=== PATIENT | female | born 1935 | race Caucasian/White ===

== ENCOUNTER 2016-03-17 13:07 | Outpatient (CLI) | payer MEDICARE, OTHER | END 2016-03-17 13:08 | disposition home or self-care (01) | DX: R41.3 Other amnesia (principal); E11.43 Type 2 diabetes mellitus with diabetic autonomic (poly)neuropathy; I10 Essential (primary) hypertension; Z79.01 Long term (current) use of anticoagulants ==

== ENCOUNTER 2017-03-09 07:50 | Outpatient (CLI) | payer MEDICARE, OTHER ==
[2017-03-09 12:34] LABS: BASOPHILS # (AUTO) 0.1 10^3/uL (0.0-0.1); BASOPHILS % (AUTO) 0.7 %; EOSINOPHILS # (AUTO) 0.1 10^3/uL (0.0-0.7); EOSINOPHILS % (AUTO) 0.8 %; HGB - HEMOGLOBIN 14.3 g/dL (12.0-16.0); LYMPHOCYTES # (AUTO) 1.4 10^3/uL (1.5-3.5); LYMPHOCYTES % (AUTO) 17.2 %; MEAN CORPUSCULAR HEMOGLOBIN 30.5 pg (27.0-31.0); MEAN CORPUSCULAR VOLUME 92.4 fL (81.0-99.0); MEAN PLATELET VOLUME 9.6 fL (7.9-10.8); MONOCYTES # (AUTO) 0.7 10^3/uL (0.0-1.0); MONOCYTES % (AUTO) 8.3 %; NEUTROPHILS # (AUTO) 6.1 10^3/uL (1.5-6.6); PLT - PLATELET COUNT 185 10^3/uL (130-450); RED BLOOD COUNT 4.67 10^6/uL (4.20-5.40); RED CELL DISTRIBUTION WIDTH 14.4 % (12.0-15.0); WHITE BLOOD COUNT 8.4 x10^3/uL (4.8-10.8)
[2017-03-09 12:48] LABS: ALBUMIN 3.8 g/dL (3.2-5.5); ALBUMIN/GLOBULIN RATIO 1.2 (1.0-2.2); ALKALINE PHOSPHATASE 53 IU/L (42-121); ALT ALANINE AMINOTRANSFERASE 17 IU/L (10-60); AST ASPARTATE AMINOTRANSFERASE 26 IU/L (10-42); BILIRUBIN,TOTAL 0.6 mg/dL (0.2-1.0); BUN - BLOOD UREA NITROGEN 19 mg/dL (6-20); CALCIUM 9.1 mg/dL (8.5-10.3); CARBON DIOXIDE - CO2 25 mmol/L (21-32); CHLORIDE 105 mmol/L (101-111); CHOL/HDL RATIO 2.8 (<4.4); CHOLESTEROL 167 mg/dL; GFR - MDRD 53 (>89); GLUCOSE 152 mg/dL (70-100); HDL CHOLESTEROL 59 mg/dL; LDL CHOLESTEROL,CALCULATED 94 mg/dL; LDL/HDL RATIO 1.6 (<4.4); SODIUM 140 mmol/L (135-145); TOTAL PROTEIN 6.9 g/dL (6.7-8.2); VLDL CHOLESTEROL 14 mg/dL
[2017-03-09 12:50] LABS: HB2 TOTAL 15.4 g/dL; HEMOGLOBIN A1C 0.71 g/dL; HEMOGLOBIN A1C % 6.4 % (4.6-6.2)
== END 2017-03-09 07:51 | disposition home or self-care (01) ==
LOC: LAB.F 07:50
PROVIDERS: ATTEND Physician Assistant Medical
DX: I10 Essential (primary) hypertension (principal); E11.43 Type 2 diabetes mellitus with diabetic autonomic (poly)neuropathy; E78.5 Hyperlipidemia, unspecified
CPT/HCPCS: 36415; 80053; 80061; 83036; 85025

== ENCOUNTER 2017-10-04 12:12 | Outpatient (CLI) | payer MEDICARE, OTHER ==
[2017-10-04 18:00] LABS: CREATININE 1.1 mg/dL (0.4-1.0)
[2017-10-04 18:02] LABS: HB2 TOTAL 16.3 g/dL; HEMOGLOBIN A1C 0.77 g/dL; HEMOGLOBIN A1C % 6.5 % (4.6-6.2)
== END 2017-10-04 12:13 | disposition home or self-care (01) ==
LOC: LAB.F 12:12
PROVIDERS: ATTEND Internal Medicine
DX: E11.43 Type 2 diabetes mellitus with diabetic autonomic (poly)neuropathy (principal)
CPT/HCPCS: 36415; 80048; 82043; 83036

== ENCOUNTER 2018-07-20 19:29 | Emergency (ER) | payer MEDICARE, OTHER ==
--- NOTE | 2018-07-20 20:29 | ED Physician Documentation ---
PD HPI HEENT - Stated complaint Stated Complaint: SUDDEN HEARING LOSS - Chief complaint Chief Complaint: Heent - History obtained from History obtained from: Patient, Family - History of Present Illness Timing - onset: Today Timing - duration: Days (1) Timing - details: Gradual onset Pain level max: 0 Pain level now: 0 Location: Right ear, Left ear Improves: Nothing Worsens: Other (nothing) - Additional information Additional information: States cannot hear out of either ear. History of wax buildup. No fevers. No dizziness. No headache. Review of Systems Constitutional: denies: Fever Nose: denies: Rhinorrhea / runny nose, Congestion Respiratory: denies: Cough GI: denies: Vomiting PD PAST MEDICAL HISTORY - Past Medical History Past Medical History: Yes Cardiovascular: Hypertension, High cholesterol Respiratory: None Endocrine/Autoimmune: Type 2 diabetes GI: None : None Psych: None Musculoskeletal: None Derm: None - Past Surgical History Past Surgical History: Yes - Present Medications Home Medications: Ambulatory Orders Medication Instructions Recorded Confirmed Atenolol 100 gm MC DAILY 07/14/13 05/20/14 Lisinopril/Hydrochlorothiazide 0.5 each PO DAILY 07/14/13 05/20/14 [Lisinopril-Hctz 20-25 mg Tab] Metformin HCl [Glucophage] 500 mg PO QPM 07/14/13 05/20/14 Pravastatin Sodium [Pravachol] 80 mg PO QPM 07/14/13 05/20/14 Dabigatran Etexilate Mesylate 150 mg PO BID 07/20/18 07/20/18 [Pradaxa] Ubidecarenone [Coenzyme Q-10] 30 mg PO DAILY 07/20/18 07/20/18 - Allergies Allergies/Adverse Reactions: Allergies Allergy/AdvReac Type Severity Reaction Status Date / Time Sulfa (Sulfonamide Allergy Intermediate Rash Verified 07/20/18 19:36 Antibiotics) - Social History Does the pt smoke?: Yes Smoking Status: Current every day smoker Does the pt drink ETOH?: Yes Does the pt have substance abuse?: No PD ED PE NORMAL - Vitals Vital signs reviewed: Yes - General General: Alert and oriented X 3, No acute distress - HEENT HEENT: Moist mucous membranes, Other (Impacted cerumen bilateral ears) - Neck Neck: Supple, no meningeal sign - Derm Derm: Warm and dry - Neuro Neuro: Alert and oriented X 3 Results - Vitals Vitals: Vital Signs - 24 hr 07/20/18 07/20/18 19:32 20:39 Temperature 36.6 C 36.3 C L Heart Rate 66 66 Respiratory 14 18 Rate Blood Pressure 130/83 H 144/86 H O2 Saturation 96 96 Oxygen O2 Source Room air PD MEDICAL DECISION MAKING - ED course Complexity details: considered differential, d/w patient ED course: Patient with cerumen impaction bilaterally. This was irrigated removed by the nurse. Reexamination reveals no evidence of infection or perforation. Hearing improved. Patient counseled regarding signs and symptoms for which I believe and urgent re-evaluation would be necessary. Patient with good understanding of and agreement to plan and is comfortable going home at this time This document was made in part using voice recognition software. While efforts are made to proofread this document, sound alike and grammatical errors may oc cur. Departure - Departure Disposition: 01 Home, Self Care Clinical Impression: Impacted cerumen of both ears Condition: Good Instructions: ED Earwax Removal Follow-Up: oJe Selby MD [Primary Care Provider] - As Needed Comments: Return if you worsen. Follow-up with your doctor for further care. Discharge Date/Time: 07/20/18 20:45
[2018-07-20 20:40] VITALS: BP 144/86
== END 2018-07-20 20:45 | disposition home or self-care (01) ==
LOC: ED 19:29
DX: H61.23 Impacted cerumen, bilateral (principal); I10 Essential (primary) hypertension; E11.9 Type 2 diabetes mellitus without complications; Z79.84 Long term (current) use of oral hypoglycemic drugs; F17.200 Nicotine dependence, unspecified, uncomplicated
CPT/HCPCS: 69209; 99282; 99283

== ENCOUNTER 2018-10-28 09:54 | Outpatient (CLI) | payer MEDICARE, OTHER ==
[2018-10-28 18:01] LABS: HB2 TOTAL 15.9 g/dL; HEMOGLOBIN A1C 0.66 g/dL; HEMOGLOBIN A1C % 5.9 % (4.6-6.2)
[2018-10-28 18:03] LABS: ALBUMIN 3.9 g/dL (3.2-5.5); ALBUMIN/GLOBULIN RATIO 1.1 (1.0-2.2); ALKALINE PHOSPHATASE 55 IU/L (42-121); ALT ALANINE AMINOTRANSFERASE 13 IU/L (10-60); AST ASPARTATE AMINOTRANSFERASE 20 IU/L (10-42); BILIRUBIN,TOTAL 0.5 mg/dL (0.2-1.0); BUN - BLOOD UREA NITROGEN 26 mg/dL (6-20); CALCIUM 9.3 mg/dL (8.5-10.3); CARBON DIOXIDE - CO2 26 mmol/L (21-32); CHLORIDE 108 mmol/L (101-111); CHOL/HDL RATIO 3.4 (<4.4); CHOLESTEROL 177 mg/dL; CREATININE 1.1 mg/dL (0.4-1.0); GFR - MDRD 47 (>89); GLUCOSE 135 mg/dL (70-100); HDL CHOLESTEROL 52 mg/dL; LDL CHOLESTEROL,CALCULATED 114 mg/dL; LDL/HDL RATIO 2.2 (<4.4); SODIUM 142 mmol/L (135-145); TOTAL PROTEIN 7.5 g/dL (6.7-8.2); VLDL CHOLESTEROL 11 mg/dL
[2018-10-28 18:04] LABS: CREATININE,URINE 230.8 mg/dL; MICROALBUM/CREATININE RATIO,UR 10.4 ug/mg (<30.0); MICROALBUMIN,URINE 2.4 mg/dL (0-300.0)
== END 2018-10-28 09:55 | disposition home or self-care (01) ==
LOC: LAB.S 09:54
PROVIDERS: ATTEND Internal Medicine
DX: E11.9 Type 2 diabetes mellitus without complications (principal)
CPT/HCPCS: 36415; 80053; 80061; 82043; 82570; 83036; 83721

== ENCOUNTER 2019-08-07 08:39 | Outpatient (CLI) | payer MEDICARE, OTHER ==
[2019-08-07 15:09] LABS: BASOPHILS # (AUTO) 0.1 10^3/uL (0.0-0.1); BASOPHILS % (AUTO) 0.7 %; EOSINOPHILS # (AUTO) 0.3 10^3/uL (0.0-0.7); EOSINOPHILS % (AUTO) 3.1 %; HGB - HEMOGLOBIN 13.1 g/dL (12.0-16.0); LYMPHOCYTES # (AUTO) 1.4 10^3/uL (1.5-3.5); LYMPHOCYTES % (AUTO) 15.9 %; MEAN CORPUSCULAR HGB CONC 31.4 g/dL (32.0-36.0); MEAN CORPUSCULAR VOLUME 98.6 fL (81.0-99.0); MEAN PLATELET VOLUME 11.5 fL (7.9-10.8); MONOCYTES # (AUTO) 0.7 10^3/uL (0.0-1.0); MONOCYTES % (AUTO) 8.2 %; NEUTROPHILS # (AUTO) 6.3 10^3/uL (1.5-6.6); NEUTROPHILS % (AUTO) 71.8 %; PLT - PLATELET COUNT 204 10^3/uL (130-450); RED BLOOD COUNT 4.23 10^6/uL (4.20-5.40); RED CELL DISTRIBUTION WIDTH 13.6 % (12.0-15.0); WHITE BLOOD COUNT 8.7 x10^3/uL (4.8-10.8)
[2019-08-07 15:54] LABS: ALBUMIN 3.7 g/dL (3.2-5.5); ALBUMIN/GLOBULIN RATIO 1.1 (1.0-2.2); ALKALINE PHOSPHATASE 53 IU/L (42-121); ALT ALANINE AMINOTRANSFERASE 14 IU/L (10-60); AST ASPARTATE AMINOTRANSFERASE 16 IU/L (10-42); BILIRUBIN,TOTAL 0.8 mg/dL (0.2-1.0); BUN - BLOOD UREA NITROGEN 25 mg/dL (6-20); CALCIUM 9.3 mg/dL (8.5-10.3); CARBON DIOXIDE - CO2 28 mmol/L (21-32); CHLORIDE 104 mmol/L (101-111); CHOL/HDL RATIO 2.5 (<4.4); CHOLESTEROL 151 mg/dL; CREATININE 1.1 mg/dL (0.4-1.0); GLUCOSE 133 mg/dL (70-100); HDL CHOLESTEROL 60 mg/dL; LDL CHOLESTEROL,CALCULATED 79 mg/dL; LDL/HDL RATIO 1.3 (<4.4); SODIUM 140 mmol/L (135-145); VLDL CHOLESTEROL 12 mg/dL
[2019-08-07 15:55] LABS: HB2 TOTAL 13.7 g/dL; HEMOGLOBIN A1C 0.59 g/dL; HEMOGLOBIN A1C % 6.1 % (4.6-6.2)
== END 2019-08-07 08:40 | disposition home or self-care (01) ==
LOC: LAB.S 08:39
PROVIDERS: ATTEND Registered Nurse
DX: E11.9 Type 2 diabetes mellitus without complications (principal); I10 Essential (primary) hypertension; E78.5 Hyperlipidemia, unspecified; Z79.01 Long term (current) use of anticoagulants
CPT/HCPCS: 36415; 80053; 80061; 83036; 83721; 84443; 85025

== ENCOUNTER 2019-08-19 07:00 | Outpatient (CLI) | payer MEDICARE, OTHER | END 2019-08-19 23:59 | disposition home or self-care (01) | LOC: LAB.R 07:00 | PROVIDERS: ATTEND Registered Nurse | DX: R19.7 Diarrhea, unspecified (principal) | CPT/HCPCS: 87045; 87046 ==

== ENCOUNTER 2020-02-09 07:00 | Outpatient (CLI) | payer MEDICARE, OTHER | END 2020-02-09 23:59 | disposition home or self-care (01) | LOC: LAB 07:00 | PROVIDERS: ATTEND Physician Assistant | DX: N39.0 Urinary tract infection, site not specified (principal) | CPT/HCPCS: 87086; 87181 ==

== ENCOUNTER 2020-05-19 10:15 | Outpatient (CLI) | payer MEDICARE, OTHER ==
--- NOTE | 2020-05-19 17:21 | CONSULTATION NOTE ---
Palliative Care Consultation - Referral Referring Provider: MICHEAL Kennedy Time of Visit: [id number] Referral setting: Assisted living Referral Reason: Debility/Weight loss/Cognitive impairment - Information Sources Records reviewed: Previous records reviewed History/Review of Systems obtained from: Patient, Family (daughter/DPDAVIE, Ivana) Exam limitations: Clinical condition (Memory impairment) - History of Present Illness Brief History of Present Illness: This is an 85-year-old female who was seen and evaluated today with in her apartment at [facility] living due to underlying cognitive impairments, physical deconditioning, and desire for advanced care planning with her daughter/DPGrecia BRODERICK present. The patient's daughter reports that the patient was independent and slowly began to decline it within her copacetic that resulted in a transition to [facility] assisted living approximately 4 years ago. The patient has never been a social individual but prior to the coronavirus pandemic she would be social with her family and have weakens away from the facility to spend time with her family. Her sons and daughter have visited during the coronavirus pandemic far out door visits so they maintains contact. However, the patient has taken a sharp functional decline moving from using her walker however resistantly, to now requiring a wheelchair and history of frequent falls. This change began in the last 3 to 4 months that the daughter perceives. The patient herself does not come down for meals and prefers to stay in her room watching TV. The patient herself denies any depressive symptoms but her daughter perceives some apathy as well as previously expressing some insomnia and anxious thoughts at night which she will letter which gave. The patient has never been treated for depression in the past. The patient's daughter recognizes that approximately 10 years ago she had to take over the patient's finances. More recently however, the patient's daughter notes that the patient is having difficulty tracking conversations. She is becoming more forgetful. Her grandchildren are calling her regularly and her family also continues to visit routinely. She has had weight loss. She has weighed 180 pounds most of her life and always has enjoyed food. She is last reported to be weight at 170 pounds. [facility] where there has been a change in the shaft. The patient's daughter is bringing fresh fruit and salads on Saturdays and there is a potential for some improvement in the patient's overall appetite. Again, the patient does not perceive any complaints has she does not recall what she has previously stated to her daughter. When previously at her last office visit with her PCP with her daughter noting her not elaborating in her answers for several weeks after that office visit the patient was trying to expand on her verbal responses to her family. The patient's daughter reports some redness under the patient's breasts and under her abdomen where she is presently receiving nystatin under her abdomen and is questioning about further interventions. The patient is seen sitting in her recliner chair watching TV and at appropriate level. She is well groomed and in no evidence of acute distress. 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 LOADER AND UNLOADER: reports: Breast cancer : reports: Other (IBS) Psych: reports: None Musculoskeletal: reports: Osteoporosis Derm: reports: None MRSA Hx?: No - Past Surgical History /EXTRACTOR LOADER AND UNLOADER: reports: Other (Radiation for left breast cancer age 68 and lumpectomy) HEENT: reports: Cataracts - Substance History Use: Uses substance without health or social issues: NONE (Has been smoking daily since she was a college student up until the last several months when she was no longer able to get outside to smoke due to her impaired mobility.) Social History - Living Situation Living arrangement: Assisted living Support System: 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 She has a degree in education that began at [employer] and was completed at [employer]. She has 3 children, 1 daughter and 2 sons. Her daughterGrecia is her DPOA with contact number [phone].The patient's first early due to testicular cancer. The patient remarried twice after her after she was and was both times. She has fond memories growing up going to the family [place] near [place] where she would play in the [place]. She has been residing at [facility] living for the past 4 years. Family History - Family History Family History: Mother: , Alzheimer's Disease, Father: Medications/Allergies - Medications Home Medications: Ambulatory Orders Medication Instructions Recorded Confirmed Atenolol 100 mg PO DAILY 05/12/14 03/17/21 Lisinopril/Hydrochlorothiazide 0.5 each PO DAILY 07/14/13 05/19/20 [Lisinopril-Hctz 20-25 mg Tab] Metformin HCl [Glucophage] 500 mg PO QPM 07/14/13 05/19/20 Pravastatin Sodium [Pravachol] 80 mg PO QPM 07/14/13 05/19/20 Dabigatran Etexilate Mesylate 150 mg PO BID 07/20/18 05/19/20 [Pradaxa] Ubidecarenone [Coenzyme Q-10] 30 mg PO DAILY 07/20/18 05/19/20 Furosemide [Lasix] 20 mg PO DAILY 05/19/20 05/19/20 Nystatin Cream [Mycostatin Cream] 1 applic TP BID MDD affected areas 05/19/20 05/19/20 until resolved Psyllium Husk [Metamucil] 1 PO DAILY MDD 1 scoop daily 05/19/20 Refresh Liquigel 1% 1 drops EACHEYE QID 05/19/20 - Allergies Allergies/Adverse Reactions: Allergies Allergy/AdvReac Type Severity Reaction Status Date / Time Sulfa (Sulfonamide Allergy Intermediate Rash Verified 05/19/20 17:36 Antibiotics) Review of Systems - Constitutional Constitutional: reports: Fatigue (napping more during the day and feels tired when waking up in the AM), Weight loss (see HPI). denies: Fever - Eyes Eyes: denies: Irritation - Ears, Nose & Throat Ears, Nose & Throat: denies: Hearing loss, Hearing aids, Dentures - Cardiovascular Cardiovascular: reports: Edema, Decr. exercise tolerance. denies: Chest pain, Lightheadedness - Respiratory Respiratory: reports: Other (Her children have noted coughing episodes intermittently during meals out and therefore family would cut up her food, but the patient denies this.). denies: Wheezing - Gastrointestinal Gastrointestinal: reports: Diarrhea (long standing history of diarrhea off and on through her adult life (IBS component)), Other (Recent decreased appetite with food not appealing). denies: Abdominal pain, Constipation, Vomiting - Genitourinary Genitourinary: denies: Dysuria - Musculoskeletal Musculoskeletal: reports: Assistive devices, Transfer issues. denies: Joint pain - Integumentary Integumentary: reports: Rash (under breasts and abdomen) - Neurological Neurological: reports: General weakness, Memory problems. denies: Headache, Dizziness - Psychiatric Psychiatric: reports: Depression (Perceived by family but not by patient, she denies depressive symptoms) - Endocrine Endocrine: reports: Diabetes type 2 (controlled with metformin. Blood gluocse levels 129-183 fasting.) - Hematologic/Lymphatic Hematologic/Lymph: denies: Recurrent infections - All Other Systems All Other Systems: reports: Reviewed and negative (ROS supplemented by patient's daughter as patient is a poor historian due to cognitive impairment.) Physical Exam - Vital Signs Pulse Rate: 66 O2 Saturation: 98 (on RA) Blood Pressure: 109/70 (left arm) - Physical Exam General Appearance: positive: No acute distress, Alert, Other (overweight) Eyes Bilateral: positive: Normal inspection, PERRL ENT: positive: No signs of dehydration, Other (No dentures present) Neck: positive: No JVD, Trachea midline Cardiovascular: positive: No murmur, Irregularly irregular. negative: Decreased pulse(s) Respiratory: positive: No respiratory distress, Breath sounds nml. negative: Rales Abdomen: positive: Non-tender, Soft, Nml bowel sounds, Obese Skin: positive: Rash (under b/l breasts and right pannus of abdomen consistent with candidiasis), Other Extremities: positive: Pedal edema (trace BLE edema), Other (+DJD changes to b/l hands). negative: Joint swelling Neurologic/Psychiatric: positive: Disoriented to time (believed the year was 1999 and unable to state the name of the president), Weakness (BUE strength 4+/5 ; BLE 4-/5 strength), Flat affect, Other (Memory recall 1/3). negative: Disoriented to person, Disoriented to place Palliative Care - POLST Patient has POLST: Yes POLST Status: DNR, Comfort Measures Pain: No pain Tiredness/Fatigue: Mild (1-3) Drowsiness/Sedation: Mild (1-3) Nausea: None Anorexia: Moderate (4-6) Dyspnea: None Depression: Moderate (4-6) (lonely) Anxiety: None Sleep: Variable sleep pattern Constipation: No Performance Status: In the last 3 to 4 months the patient has had a drastic functional change moving from the use of a walker with ambulation to no longer being ambulate ambulatory using a only a wheelchair. She is a pivot stand and transfer to her wheelchair and onto her recliner. She has had a decreased appetite and subtle weight loss. She requires assistance with pericare and bathing. PPS 50% - Palliative Care Discussion: The patient's daughter/DPOAGrecia recognizes the functional and cognitive decline that the patient has been taking over the last several months. She has some questions and concerns regarding some potential underlying dementia which is not out of the realm of possibility given the patient's history of dementia Alzheimer's dementia with her mother and the onset of her cognitive changes approximately 10 years prior. This will need to be further teased out and assessed. The patient reportedly has been very clear in her living will and directives with a focus on comfort measures. Discussions were begun on several years ago and the patient's daughter/DPGrecia BRODERICK plans to honor her mother's wishes with the support of her brothers. The patient wishes to focus on comfort measures and to remain at [facility] living through end-of-life. The patient's mother was at [facility] for the last several years of her life as her Alzheimer's dementia progressed and the patient herself has been very clear that this is not something that is an option for her due to prior experiences. Due to the patient's underlying cognitive impairment it is difficult to assess if she has depression but does appear to have some underlying apathy. The patient finds pleasure in watching her television programs. Some underlying depression may also be contributing to further cognitive decline. The patient has a strong mormon merry and has been episcopaliaen. She was very strongly involved with [facility] until the coronavirus pandemic. She is open to having the palliative care farmworker grain for additional spiritual and social support. Impression and Recommendations - Palliative Care Impression: This is a karthik 85-year-old female with underlying cutaneous candidiasis under her bilateral breasts and right abdominal pannus, cognitive impairment, physical deconditioning due to to underlying osteoarthritis. From changing from nystatin powder to nystatin cream to be of applied to affected areas of candidiasis until resolved. She would also benefit from home health physical therapy for lower extremity strengthening and she is open to this service. Palliative care will continue to build rapport, tease out goals of care, provide continued advance care planning and care coordination. Recommendations/Counseling Done: 1. Cutaneous candidiasis noted to bilateral breasts and under her right abdominal pannus. Discontinue nystatin powder. Initiate nystatin cream apply a small amount to affected areas twice daily until resolved. Reviewed with patient and daughter not unexpected given the patient's body habitus and review preventative techniques. Patient would benefit from a home health aide for skin care And personal care. 2.Physical deconditioning due to osteoarthritis noted on physical exam. Patient is no longer ambulatory and utilizes a wheelchair with demonstrated lower extremity weakness. She would benefit from 3. Cognitive impairment. Suspect that the patient has dementia given her poor recall and short-term memory issues. She attempts to cover her cognitive impairment with short responses to questions. Will do slums testing at next visit as the patient allows for further testing and assessment. 4.Apathy and lack of appetite. Patient has had a reported weight loss. Patient does not perceive that she has depressive symptoms but this has been apparent to the patient's family. Request that the patient have her weight obtained every other week and notify this ENTERPRISE ARCHITECT if greater than or less than 3 pound difference. We will do more formal assessment with geriatric depression screen at next evaluation. Given the patient's lack of appetite, underlying reports of staying awake due to thoughts the patient may be a benefit from the medication such as mirtazapine in the evenings. We will continue to monitor and reassess. 5. History of falls. Falls unavoidable due to patient's underlying cognitive impairment. Requesting home health physical therapy for additional strengthening for prevention of falls. May need to consider weighing risk versus benefits of continuation of Pradaxa in the future for prevention of an adverse event due to a fall being on anticoagulation therapy. 6. Hyperlipidemia. Patient presently was on pravastatin 80 mg daily with coenzyme Q10. The patient presently does not perceive a pill burden. She does not have a history of CVA or NV. As the family's goals are on comfort and quality of life may reassess discontinuation of statin therapy in the future as this is not adding to the patient's comfort. We will continue to monitor and readdress. Was introduced to the patient's daughter/DPOA Grecia today. 7.Advance care planning. Patient has POLST in place as DN AR with comfort measures, antibiotics for prolongation of life, and no artificial nutrition by tube. The patient has been very clear to her family that she wishes to focus on comfort and quality of life as well as not having placement in a nursing facility due to her prior experiences with her mother declining in dying and 1 due to her Alzheimer's dementia. The patient's family wishes to honor and respect her wishes. Supportive listening provided to the patient's daughter. We will continue to tease out goals of care moving forward. [facility] PT and HOME HEALTH AIDE Patient is wheelchair bound in her assisted-living facility and is a taxing and considerable effort to leave the facility. She would requires home physical therapy for evaluation and treatment for strengthening of lower extremities for transfer training with the goal to improve her ability to bear weight and pivot, take small steps with ambulation, and thus be able to perform transfers from bed to wheelchair. Home health aide for bathing for personal care and skin care. Provided patient's daughter with contact information for Carole Sloan CNA to provide in-house diabetic foot care and nail trimming. Total time spent 90 minutes with greater than 50% of this spent in counseling and coordination of care with patient and daughter/DPOA; review of pathophysiology of various dementias and projected course of decline with daughter; examination of patient; review of pain and symptom management and anticipatory guidance. Disclaimer: The chart note was formulated using voice recognition technology and unfortunately sound alike errors may occur.
== END 2020-05-19 10:16 | disposition home or self-care (01) ==
LOC: PC 10:15
PROVIDERS: ATTEND Nurse Practitioner Family
DX: Z51.5 Encounter for palliative care (principal); B37.2 Candidiasis of skin and nail; M15.9 Polyosteoarthritis, unspecified; R41.89 Other symptoms and signs involving cognitive functions and awareness; R45.3 Demoralization and apathy; R63.0 Anorexia; E78.5 Hyperlipidemia, unspecified; Z91.81 History of falling; Z87.891 Personal history of nicotine dependence; Z79.84 Long term (current) use of oral hypoglycemic drugs; Z66 Do not resuscitate

== ENCOUNTER 2020-05-28 07:00 | Outpatient (CLI) | payer MEDICARE, OTHER ==
[2020-05-28 14:57] LABS: BASOPHILS # (AUTO) 0.1 10^3/uL (0.0-0.1); BASOPHILS % (AUTO) 0.5 %; EOSINOPHILS # (AUTO) 0.2 10^3/uL (0.0-0.7); EOSINOPHILS % (AUTO) 1.1 %; HCT - HEMATOCRIT 44.2 % (37.0-47.0); HGB - HEMOGLOBIN 13.3 g/dL (12.0-16.0); LYMPHOCYTES # (AUTO) 1.6 10^3/uL (1.5-3.5); LYMPHOCYTES % (AUTO) 11.7 %; MEAN CORPUSCULAR HEMOGLOBIN 30.7 pg (27.0-31.0); MEAN CORPUSCULAR HGB CONC 30.1 g/dL (32.0-36.0); MEAN CORPUSCULAR VOLUME 102.1 fL (81.0-99.0); MEAN PLATELET VOLUME 11.8 fL (7.9-10.8); MONOCYTES # (AUTO) 1.3 10^3/uL (0.0-1.0); MONOCYTES % (AUTO) 9.5 %; NEUTROPHILS # (AUTO) 10.3 10^3/uL (1.5-6.6); NEUTROPHILS % (AUTO) 76.9 %; PLT - PLATELET COUNT 256 10^3/uL (130-450); RED BLOOD COUNT 4.33 10^6/uL (4.20-5.40); RED CELL DISTRIBUTION WIDTH 12.7 % (12.0-15.0); WHITE BLOOD COUNT 13.3 x10^3/uL (4.8-10.8)
[2020-05-28 15:51] LABS: ALBUMIN 4.1 g/dL (3.2-5.5); ALKALINE PHOSPHATASE 54 IU/L (42-121); ALT ALANINE AMINOTRANSFERASE < 10 IU/L (10-60); AST ASPARTATE AMINOTRANSFERASE 18 IU/L (10-42); BILIRUBIN,TOTAL 0.6 mg/dL (0.2-1.0); BUN - BLOOD UREA NITROGEN 27 mg/dL (6-20); CALCIUM 9.8 mg/dL (8.5-10.3); CARBON DIOXIDE - CO2 27 mmol/L (21-32); CHLORIDE 105 mmol/L (101-111); CREATININE 1.2 mg/dL (0.4-1.0); GFR - MDRD 42 (>89); GLUCOSE 138 mg/dL (70-100); POTASSIUM 4.2 mmol/L (3.5-5.0); SODIUM 141 mmol/L (135-145); TOTAL PROTEIN 8.3 g/dL (6.7-8.2)
[2020-05-28 16:23] LABS: THYROID STIMULATING HORMONE 1.65 uIU/mL (0.34-5.60)
== END 2020-05-28 23:59 | disposition home or self-care (01) ==
LOC: LAB.S 07:00
PROVIDERS: ATTEND Physician Assistant Medical
DX: R53.83 Other fatigue (principal); R53.1 Weakness; R41.89 Other symptoms and signs involving cognitive functions and awareness
CPT/HCPCS: 36415; 80053; 84443; 85025

== ENCOUNTER 2020-05-28 13:02 | Outpatient (CLI) | payer MEDICARE, OTHER ==
--- NOTE | 2020-05-28 14:03 | XRAY Report ---
PROCEDURE: Chest 2 View X-Ray INDICATIONS: DECREASED LUNG SOUNDS TECHNIQUE: 2 view(s) of the chest. COMPARISON: None. FINDINGS: Surgical changes and devices: Surgical clips are noted in left breast/left lateral chest wall. Lungs and pleura: No pleural effusions or pneumothorax. Lungs are clear. Mediastinum: Mildly tortuous thoracic aorta is seen. Heart size is enlarged. Bones and chest wall: No suspicious bony abnormalities. Soft tissues appear unremarkable. IMPRESSION: No acute cardiopulmonary pathology. Reviewed by: Dario Cha MD on 05/28/2020 2:02 PM PDT Approved by: Dario Cha MD on 05/28/2020 2:02 PM PDT Station ID: [id number]
== END 2020-05-28 23:59 | disposition home or self-care (01) ==
LOC: DI.S 13:02
PROVIDERS: ATTEND Physician Assistant Medical
DX: R06.89 Other abnormalities of breathing (principal); R53.83 Other fatigue; R53.1 Weakness; R41.89 Other symptoms and signs involving cognitive functions and awareness
CPT/HCPCS: 36415; 80053; 84443; 85025

== ENCOUNTER 2020-06-07 11:45 | Outpatient (CLI) | payer MEDICARE, OTHER ==
--- NOTE | 2020-06-07 16:43 | CONSULTATION NOTE ---
Palliative Care Follow Up - Referral Referring Provider: MICHEAL Kennedy Time of Visit: 7435-4322 Referral setting: Assisted living Referral Reason: Cognitive impairment/Debility/Advanced Care Planning - Information Sources Records reviewed: Previous records reviewed History/Review of Systems obtained from: Patient, Family (daughter/Ivana GILLIS present) Exam limitations: Clinical condition (Memory Impairment) - History of Present Illness Update Brief HPI Update: This is an 85-year-old female who was seen in follow-up today in her apartment at [facility] due to underlying cognitive impairment, further evaluation of her cognitive decline, debility, advance care planning with her daughter/Grecia GILLIS present. The patient is presently working with [facility] physical therapy with recommendations having been made for additional equipment to utilize within the apartment for the patient's comfort and safety. The patient's daughter and son working on obtainment of these items most specifically a shower chair and overhanging side table which are to come later this week. The patient has not had any recent falls. Since last evaluation the patient had in recent confusion and generalized weakness that resulted in her requiring to be a two-person assistance. She was seen and evaluated at the [place] [facility] however, she was unable to provide a urine specimen nor were they able to straight catheter due to positioning and she was treated empirically with Macrobid course based on previous urine culture results in February 2020. She responded appropriately. She had increased weakness that lasted for about 3 days and is close to her previous baseline. She is now able to transfer with 1 person out of bed. Her appetite has improved and remains steady. Her daughter has not had any contact from [facility] regarding a bath aide to provide assistance in the interim while she is looking to obtain further private caregiver to provide bathing once or twice a week. The erythema due to candidiasis under her left breast and right pannus of her abdomen has improved with initiation of nystatin cream. The patient denies any pruritus. The patient is seen sitting out of bed in her wheelchair well groomed and no evidence of acute distress. Past Medical History: Patient has a past medical history of hypertension, hyperlipidemia, atrial fibrillation on Pradaxa, lung nodule, cognitive impairment, diabetes mellitus type 2, breast cancer, IBS, osteoporosis, radiation to the left breast and lumpectomy at age 68, cataracts, history of tobacco abuse. 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 She has a degree in education that began at [employer] and then was completed at [employer]. She has 3 children, 1 daughter and 2 sons. Her daughter, Grecia is her DPOA with contact number [phone]. Grecia is also a schoolteacher and typically Mondays are the best days for her to meet. The patient's first early in the course of their marriage due to testicular cancer. She remarried twice and subsequently each of her following marriages. She has been living at [facility] for the past 4 years. She has a pending referral to palliative care general labor forklift operator for additional support at the daughter's request. The patient's daughter is looking at obtaining a private caregiver or caregiver through an agency to provide assistance for bathing needs during the week. Medications/Allergies - Medications Home Medications: Ambulatory Orders Medication Instructions Recorded Confirmed Atenolol 100 mg PO DAILY 07/14/13 05/19/20 Lisinopril/Hydrochlorothiazide 0.5 each PO DAILY 07/14/13 05/19/20 [Lisinopril-Hctz 20-25 mg Tab] Metformin HCl [Glucophage] 500 mg PO QPM 07/14/13 05/19/20 Pravastatin Sodium [Pravachol] 80 mg PO QPM 07/14/13 05/19/20 Dabigatran Etexilate Mesylate 150 mg PO BID 07/20/18 05/19/20 [Pradaxa] Ubidecarenone [Coenzyme Q-10] 30 mg PO DAILY 07/20/18 05/19/20 Furosemide [Lasix] 20 mg PO DAILY 05/19/20 05/19/20 Nystatin Cream [Mycostatin Cream] 1 applic TP BID MDD affected areas 05/19/20 05/19/20 until resolved Psyllium Husk [Metamucil] 1 PO DAILY MDD 1 scoop daily 05/19/20 Refresh Liquigel 1% 1 drops EACHEYE QID 05/19/20 - Allergies Allergies/Adverse Reactions: Allergies Allergy/AdvReac Type Severity Reaction Status Date / Time Sulfa (Sulfonamide Allergy Intermediate Rash Verified 06/07/20 16:47 Antibiotics) Review of Systems - Constitutional Constitutional: reports: Weight stable. denies: Fever, Poor appetite - Eyes Eyes: denies: Vision loss - Ears, Nose & Throat Ears, Nose & Throat: denies: Hearing loss, Hearing aids, Nasal congestion - Cardiovascular Cardiovascular: reports: Edema, Decr. exercise tolerance. denies: Chest pain, Lightheadedness - Respiratory Respiratory: denies: Cough, Wheezing - Gastrointestinal Gastrointestinal: reports: Good appetite (has recently improved). denies: Abdominal pain, Constipation, Vomiting - Genitourinary Genitourinary: reports: Incontinence. denies: Dysuria - Musculoskeletal Musculoskeletal: reports: Assistive devices, Transfer issues. denies: Joint pain - Integumentary Integumentary: reports: Rash (under breasts and abdomen--improved since last evaluation) - Neurological Neurological: reports: General weakness, Memory problems. denies: Headache - Endocrine Endocrine: reports: Diabetes type 2 (controlled with metformin) - Hematologic/Lymphatic Hematologic/Lymph: reports: Recurrent infections (Typically has a UTI 2-3 times per year per daughter's report) - All Other Systems All Other Systems: reports: Reviewed and negative (ROS supplemented by patient's daughter as patient is a poor historian due to cognitive impairment.) Physical Exam - Vital Signs Temperature: 36.7 C Pulse Rate: 71 O2 Saturation: 96 Blood Pressure: 124/78 - Physical Exam General Appearance: positive: No acute distress, Alert, Other (overweight) Eyes Bilateral: positive: Normal inspection ENT: positive: No signs of dehydration Neck: positive: Trachea midline Cardiovascular: positive: No murmur, Irregularly irregular Respiratory: positive: No respiratory distress, Breath sounds nml. 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 negative: Disoriented to person, Disoriented to place Palliative Care - POLST Patient has POLST: Yes POLST Status: DNR, Comfort Measures Pain: No pain Performance Status: PPS 50% - Palliative Care Discussion: The patient's daughter/DPOA, Grecia has some concerns regarding the patient's recent development of a urinary tract symptoms and symptomatology on how to proceed moving forward regarding antibiotic therapy. Discussed with the patient's daughter that her mother has previously expressed to her and her siblings that she wishes to be comfortable and therefore, antibiotic use could be considered for comfort measures. Grecia does not wish to be placed in a position of "playing God" regarding decision making. The patient's daughter/DPOA has the support of her siblings with the decision-making process and today provided empathetic listening for Grecia that each step moving forward would be a discussion regarding management. Ultimately, if the situation arises again for evaluation of a urinary tract infection may trial oral antibiotics recognizing that without a urine specimen may not be effective and the patient may decline. If this were to be the case, the patient's daughter wishes to then have the patient transition to hospice services to be comfortable and focus on symptom management within her apartment at [facility]. The patient's daughter/DPOA recognizes that the patient is undergoing functional and cognitive decline and with performing SLUMS today, and the patient scoring 10 out of 30 the patient would be considered having underlying dementia. The patient's daughter recognizes that this is a chronic, progressive illness and with each medical insult or injury, such as urinary tract infection, it would be unlikely that the patient would be able to return to her previous baseline function and would could expect a continued, gradual decline. Results - Lab Results Lab results reviewed: Yes Lab and Imaging Results: 05/28/2020 Sodium 141, potassium 4.2, BUN 27, creatinine 1.2, estimated GFR 42, alk phos 54, albumin 4.1, TSH 1.65 WBC 13.3, hemoglobin 13.3, hematocrit 44.2%, platelet 256 Impression and Recommendations - Palliative Care Impression: This is a karthik 85-year-old female with underlying dementia likely Alzheimer's given SL UMS score 10 out of 30 today, cutaneous candidiasis and physical deconditioning. She has had improvement with nystatin cream applied to the affected areas for candidiasis. She continues to work with home health physical therapy and would benefit from a home health aide. She recently has had resolution of her urinary tract infection symptoms. Palliative care to continue to build rapport, provide care coordination, symptom management and advance care planning with a transition to hospice services when medically appropriate. Recommendations/Counseling Done: 1. Physical deconditioning due to osteoarthritis. Patient is no longer ambulatory and utilizes a wheelchair with lower extremity weakness. Patient currently supported by [facility] with the goal to improve functional status and safety. Discussed with the daughter obtaining Roho mosaic cushion for use in future to off-load pressure points. 2.Dementia, likely Alzheimer's given family history. SLUMS performed today scoring 10 out of 30. Patient Is aware of her poor recall and short-term memory loss. Given her recall and ability to make connections she would benefit from assistance regarding medical decision making by her family most pacifically her daughter/DPOA, Grecia. On no disease modifying agents and resides in an assisted living environment. The patient's daughter recognizes that dementia is a chronic, progressive course and wishes to optimize the patient's comfort within the facility setting. 3. History of falls. Falls unavoidable due to the patient's underlying dementia. No recent falls. Presently working with home health physical therapy for strengthening of the lower extremities for prevention of falls. 4. UTI. Resolved. Reviewed with facility RN, Tiara that in the future if the patient presents with signs and symptoms of urinary tract infection then may request for sample of urinalysis and culture to be performed on site to determine the need for antibiotic course and antibiotic response. Discussed at length with the patient's daughter that antibiotics may be utilized for comfort purposes for symptom management with understanding verbalized and supportive listening provided. If at any point the patient were to decline while on antibiotics the patient's daughter would wish to then make a transfer to hospice services on site. 5.Advance care planning. Patient has POLST in place as DN AR with comfort measures. As antibiotics are listed for prolongation of life this may need to be updated at a future evaluation however, this section is fluid and not set and stone and may have a discussion before proceeding with any intervention with the patient's DPOA discussed with the patient's daughter today. The patient has been very clear to her family that she wishes to focus on comfort and quality of life in her present setting. The patient's family wishes to honor and respect her wishes. Lengthy discussion with the patient's daughter today regarding utilization of antibiotic therapy towards end of life for symptom management and how to coordinate a transition to hospice services. The patient is transferring her care to a another PCP and request a referral for continuity and continuation of care per the daughter's request. Also be requested that palliative care general labor forklift operator and establish support and rapport with the patient. Total time spent 55 minutes with greater than 50% of this spent in counseling and coordination of care with patient and daughter/DPOA Ivana; examination of p atient; review of pain and symptom management and anticipatory guidance. Reviewed POC with facility RN, Radha. Disclaimer: The chart note was formulated using voice recognition technology and unfortunately sound alike errors may occur.
== END 2020-06-07 11:46 | disposition home or self-care (01) ==
LOC: PC 11:45
PROVIDERS: ATTEND Nurse Practitioner Family
DX: Z51.5 Encounter for palliative care (principal); Z72.3 Lack of physical exercise; M19.90 Unspecified osteoarthritis, unspecified site; F03.90 Unspecified dementia, unspecified severity, without behavioral disturbance, psychotic disturbance, mood disturbance, and anxiety; Z91.81 History of falling; B37.2 Candidiasis of skin and nail; E11.9 Type 2 diabetes mellitus without complications; Z87.891 Personal history of nicotine dependence; Z66 Do not resuscitate

== ENCOUNTER 2020-07-14 09:05 | Outpatient (CLI) | payer MEDICARE, OTHER ==
--- NOTE | 2020-07-14 14:43 | CONSULTATION NOTE ---
Palliative Care Follow Up - Referral Referring Provider: Karoline Raymond PA-C Time of Visit: Initiated 904 Referral setting: Assisted living Referral Reason: Weakness/LE edema/Dementia - Information Sources Records reviewed: Previous records reviewed History/Review of Systems obtained from: Patient, Family (daughter/ELIS Heath via phone), Nursing (MERLINE Garcia) Exam limitations: Clinical condition (Dementia) - History of Present Illness Update Brief HPI Update: This is an 85-year-old female who is seen in follow-up today in her apartment and reports assisted living at the request of her daughter/Grecia GILLIS due to recent increased weakness in the setting of UTI and lower extremity edema. The patient's daughter had contacted palliative care on 07/09 after the patient was displaying increased fatigue and generalized weakness to her lower extremity as well as decreased appetite that is her typical presentation for urinary tract infections. Given the patient in early June 2020 did not complete her Macrobid that was prescribed And comparison of of last urine culture demonstrating growth of E. coli greater than 100,000 CFU per mL with no noted antibiotic resistance she was started on Macrobid 100 mg twice daily x5 days. This was initiated on Sunday per the daughter's report. A UA with microscopy he was requested however, a urine swab was obtained in place of this which grew Pseudomonas and E. coli through urineID molecular pathogen report which does not display resistance to Macrobid. The patient has had improved strength and clinically has improved. However, the patient's daughter reports that yesterday she appeared to have a setback as she slept during her daughter's visit. Today, the patient is bright and alert and in engaged following conversation. The patient's daughter also reported concerns with her right foot having increased swelling compared to her left foot that has been without erythema and is nontender. There has been no signs or symptoms of cellulitis per nursing staff as well as the patient's daughter. The patient's daughter did not take the patient for PCP for evaluation earlier this week and has reduced significantly. The patient does have a history of lower extremity edema and is presently on HCTZ as well as furosemide. The patient denies any tenderness to palpation to her right foot and denies localized pain. The patient is seen resting in bed in her nightgown. She is bright and alert with no evidence of acute distress. Past Medical History: Patient has a past medical history of hypertension, hyperlipidemia, atrial fibrillation on Pradaxa, lung nodule, cognitive impairment, diabetes mellitus type 2, breast cancer, IBS, osteoporosis, radiation to the left breast and lumpectomy at age 68, cataracts, history of tobacco abuse, dementia. 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 She has a degree in education that began at [employer] and then completed at [employer]. She has 3 children, 1 daughter and 2 sons. Her daughter, Grecia is her DPOA with contact number [phone]. Grecia is a schoolteacher and typically Mondays are the best days for her to meet in person. She has been residing in [place] for the last 4 years. The patient is being followed by [facility] presently. She is also being supported by the palliative care environmental health manager and they have formed a [facility] study group. Medications/Allergies - Medications Home Medications: Ambulatory Orders Medication Instructions Recorded Confirmed Atenolol 100 mg PO DAILY 07/14/13 05/19/20 Lisinopril/Hydrochlorothiazide 0.5 each PO DAILY 07/14/13 05/19/20 [Lisinopril-Hctz 20-25 mg Tab] Metformin HCl [Glucophage] 500 mg PO QPM 07/14/13 05/19/20 Pravastatin Sodium [Pravachol] 80 mg PO QPM 07/14/13 05/19/20 Dabigatran Etexilate Mesylate 150 mg PO BID 07/20/18 05/19/20 [Pradaxa] Ubidecarenone [Coenzyme Q-10] 30 mg PO DAILY 07/20/18 05/19/20 Furosemide [Lasix] 20 mg PO DAILY 05/19/20 05/19/20 Nystatin Cream [Mycostatin Cream] 1 applic TP BID MDD affected areas 05/19/20 05/19/20 until resolved Psyllium Husk [Metamucil] 1 PO DAILY MDD 1 scoop daily 05/19/20 Refresh Liquigel 1% 1 drops EACHEYE QID 05/19/20 - Allergies Allergies/Adverse Reactions: Allergies Allergy/AdvReac Type Severity Reaction Status Date / Time Sulfa (Sulfonamide Allergy Intermediate Rash Verified 06/07/20 16:47 Antibiotics) Review of Systems - Constitutional Constitutional: reports: Fatigue (improved, see HPI), Weight stable. denies: Fever, Poor appetite - Eyes Eyes: reports: Other (crusting to b/l eyelids and daughter has been using occusoft scrubs OTC. Denies pain or discomfort.) - Ears, Nose & Throat Ears, Nose & Throat: denies: Hearing aids - Cardiovascular Cardiovascular: reports: Edema (right foot slightly greater than left foot), Decr. exercise tolerance. denies: Chest pain - Respiratory Respiratory: denies: Cough - Gastrointestinal Gastrointestinal: reports: Good appetite (imrpoved after recent decrease in setting of UTI). denies: Constipation, Vomiting - Genitourinary Genitourinary: reports: Incontinence. denies: Dysuria - Musculoskeletal Musculoskeletal: reports: Assistive devices, Transfer issues. denies: Joint pain - Integumentary Integumentary: denies: Rash - Neurological Neurological: reports: General weakness, Memory problems. denies: Headache - Psychiatric Psychiatric: reports: Depression - Endocrine Endocrine: reports: Diabetes type 2 (controlled with metformin) - Hematologic/Lymphatic Hematologic/Lymph: reports: Recurrent infections (Typically has a UTI 2-3 times per year per daughter's report) - All Other Systems All Other Systems: reports: Reviewed and negative (ROS supplemented by patient's daughter and MERLINE Garcia as patient is a poor historian due to cognitive impairment.) Physical Exam - Vital Signs Temperature: 36.7 C Pulse Rate: 66 O2 Saturation: 97 (on RA at rest) Blood Pressure: 131/57 (left wrist) - Physical Exam General Appearance: positive: No acute distress, Alert, Other (overweight, resting in bed in nightgown) Eyes Bilateral: positive: Other (slight crusting to b/l lower eyelids that easy was removed with warm washcloth without injection to either eye) ENT: positive: No signs of dehydration Neck: positive: Trachea midline Cardiovascular: positive: Regular rate & rhythm, No murmur Respiratory: positive: No respiratory distress, Breath sounds nml Abdomen: positive: Non-tender, Soft, Nml bowel sounds, Obese, Other (bladder nondistended) Extremities: positive: Pedal edema (trace left foot; +1 right foot), Other (+DJD changes to b/l hands; calf circumference 31cm bilaterally; negative Francois's sig n bilaterally) Neurologic/Psychiatric: positive: Disoriented to time, Weakness (generalized), Flat affect, Other (Responds with minimal words or short sentances. Often will state "I don't know" to questions). negative: Disoriented to person, Disoriented to place Palliative Care - POLST Patient has POLST: Yes POLST Status: DNR, Comfort Measures Pain: No pain - Palliative Care Discussion: The patient sustained a recent cognitive and functional decline in the setting of a likely urinary tract infection that she has clinically improved with the initiation of Macrobid 100 mg twice daily for a total of 5 days. The urineID report indicates that the patient has Pseudomonas and E. coli present, which given the patient's incontinence is not unexpected. There is no demonstration of resistance to the juan f identified and given the patient's positive response will complete oral antibiotic therapy. Discussed with the patient's daughter would expect a gradual improvement and will continue to benefit from working wit h home health physical therapy services however, the patient is unlikely to return fully to her previous baseline status but is likely to return close given her underlying comorbidities with understanding verbalized. Reassurance provided to the patient's daughter regarding lower extremity edema that has greatly improved. Introduced the concept of utilizing diabetic compression socks for a light gradient in the future but given the patient's improvement with her lower extremity edema, this is declined to initiate at the present time. The patient's daughter, Grecia continues to visit the facility on a routine basis overseeing care and management. The patient herself spoke her longest sentence today stating that her daughter "does not need to come here all the time" recognizing that Grecia is attempting to in sure her optomized care and comfort. Results - Lab Results Lab results reviewed: Yes Lab and Imaging Results: Urine ID results Impression and Recommendations - Palliative Care Impression: A karthik 85-year-old female with underlying dementia likely Alzheimer's in nature with a recent generalized weakness, decreased appetite in the setting of likely urinary tract infection that has responded clinically to oral antibiotic therapy. Would complete oral antibiotic therapy. Continue to work with home health services. Palliative care to continue to build rapport, provide care coordination, symptom management and advance care planning with transition to hospice services when medically appropriate. Recommendations/Counseling Done: 1. UTI, clinically improved. Urine ID identified Pseudomonas and E. coli not resistant to Macrobid. Complete Macrobid 100 mg twice daily x5 days. Patient's daughter/DPOA wishes to weigh benefits versus burdens in the future regarding antibiotic treatment versus transitioning to hospice services. We will continue to provide support to the patient and her family regarding decision making moving forward. Encourage oral hydration. 2. Pedal edema, bilaterally. Right foot greater than left foot with no evidence of gout or cellulitis. Negative Homans' sign spill bilaterally with equal calf circumference with no evidence of DVT. The patient has a history of lower extremity edema. Made recommendation of utilization of diabetic support socks to be donned and doffed in the morning and evening however, at this time the patient's daughter declines but may readdress in the future. Continue HCTZ and furosemide as ordered. Continue to encourage elevation of lower extremities at rest. Continue to monitor. 3. Dementia, likely Alzheimer's given the patient's family history. Chronic. Progressive. Supportive care. On no disease modifying agents and resides in assisted living environment. Given the patient's advanced age and chronic comorbidities a gradual decline is expected. 4. advanced care planning. Patient has POLST in place as DN AR with comfort measures. Patient has positively responded to oral antibiotic therapy and has had improvement in her symptoms. Moving forward, the patient's daughter wishes to weigh benefits versus burdens regarding antibiotic treatment as the patient herself had previously expressed a desire to not utilize antibiotics for prolongation of life. We will continue to readdress as needs arise with the patient's DPOA and support the daughter/DPOA in this decision-making process. CPT 85170 Plan of care reviewed with facility R[facility]. Contacted the patient's daughter/DPOA at [phone] and updated regarding clinical status, urine ID findings, clinical improvement, with supportive listening provided. In agreement with plan of care. Questions answered and addressed. Disclaimer: The chart note was formulated using voice recognition technology and unfortunately sound alike errors may occur.
== END 2020-07-14 09:06 | disposition home or self-care (01) ==
LOC: PC 09:05
PROVIDERS: ATTEND Nurse Practitioner Family
DX: Z51.5 Encounter for palliative care (principal); N39.0 Urinary tract infection, site not specified; B96.5 Pseudomonas (aeruginosa) (mallei) (pseudomallei) as the cause of diseases classified elsewhere; B96.20 Unspecified Escherichia coli [E. coli] as the cause of diseases classified elsewhere; R60.0 Localized edema; F03.90 Unspecified dementia, unspecified severity, without behavioral disturbance, psychotic disturbance, mood disturbance, and anxiety; E11.9 Type 2 diabetes mellitus without complications; Z79.84 Long term (current) use of oral hypoglycemic drugs; Z66 Do not resuscitate

== ENCOUNTER 2020-08-16 10:30 | Outpatient (CLI) | payer MEDICARE, OTHER ==
--- NOTE | 2020-08-16 14:40 | CONSULTATION NOTE ---
Palliative Care Follow Up - Referral Referring Provider: Karoline Raymond PA-C Time of Visit: Initiated 1030 Referral setting: Assisted living Referral Reason: Weakness/Dementia/Candidiasis - Information Sources Records reviewed: Previous records reviewed History/Review of Systems obtained from: Patient, Family (daughter/DPOA, Ivana over thephone), Nursing (Radha RICK) Exam limitations: Clinical condition (Advanced Dementia) - History of Present Illness Update Brief HPI Update: This is an 85-year-old female who was seen full today in her apartment in [facility] due to continued generalized weakness in the setting of recent UTI and dementia. The patient was treated for a urinary tract infection on 07/14/2020 with Macrobid for a 5-day course. This symptomatology presented itself with increased fatigue and generalized weakness to her lower extremities as well as a decreased appetite which is typical presentation for the patient when she has urinary tract infections. A brief swab was obtained demonstrating susceptibility to Macrobid. Unfortunately, the patient has not rebounded to her prior alertness and strength that she had been previously prior to this most recent urinary tract infection. The patient's daughter reports that she is requiring continued assistance when getting out of bed. She has not had any recent falls. She was able to go out with the family on Sunday 4 and a outing at a restaurant and was present but not fully engaged. She is tiring easily. The daughter recognizes that this can be progression of her overall advanced chronic illnesses and this is a current chronic trajectory however, wishes to attempt to have the patient return to her previous baseline functional status with physical therapy on site for strengthening. Her bilateral lower extremity edema appears to be stable with no evidence of increase. The patient continues to have Bible study sessions with the palliative care line assembly utility worker. The patient is seen bright and alert out of bed in her recliner chair dressed and well-groomed. She has completed 75% of her breakfast sitting on her side table. She is engaged with no evidence of acute distress. Past Medical History: Patient has a past medical history of hypertension, hyperlipidemia, atrial fibrillation on Pradaxa, lung nodule, cognitive impairment, diabetes mellitus type 2, breast cancer, IBS, osteoporosis, radiation to the left breast and lumpectomy at age 68, cataracts, history of tobacco abuse, dementia. 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 She has a degree in education that began at [employer] and then completed at [employer]. She has 3 children, 1 daughter and 2 sons. Her daughter, Grecia is her DPOA with contact number [phone]. Grecia is a schoolteacher and typically Mondays are the best days for her to meet in person. She has been residing in [place] for the last 4 years. She is also being supported by the palliative care line assembly utility worker and they have formed a [facility] study group. Medications/Allergies - Medications Home Medications: Ambulatory Orders Medication Instructions Recorded Confirmed Atenolol 100 mg PO DAILY 07/14/13 05/19/20 Lisinopril/Hydrochlorothiazide 0.5 each PO DAILY 07/14/13 05/19/20 [Lisinopril-Hctz 20-25 mg Tab] Metformin HCl [Glucophage] 500 mg PO QPM 07/14/13 05/19/20 Pravastatin Sodium [Pravachol] 80 mg PO QPM 07/14/13 05/19/20 Dabigatran Etexilate Mesylate 150 mg PO BID 07/20/18 05/19/20 [Pradaxa] Ubidecarenone [Coenzyme Q-10] 30 mg PO DAILY 07/20/18 05/19/20 Furosemide [Lasix] 20 mg PO DAILY 05/19/20 05/19/20 Psyllium Husk [Metamucil] 1 PO DAILY MDD 1 scoop daily 05/19/20 Refresh Liquigel 1% 1 drops EACHEYE QID 05/19/20 Ketoconazole 2% Cream [Nizoral 2% 1 applic TP DAILY 08/16/20 08/16/20 Cream] - Allergies Allergies/Adverse Reactions: Allergies Allergy/AdvReac Type Severity Reaction Status Date / Time Sulfa (Sulfonamide Allergy Intermediate Rash Verified 06/07/20 16:47 Antibiotics) Review of Systems - Constitutional Constitutional: reports: Fatigue (waxes and wanes), Weight stable (weight 164lb 08/11/2020). denies: Fever, Poor appetite - Eyes Eyes: reports: Other (h/o of dry eyes with refresh eye drops scheduled). denies: Irritation - Ears, Nose & Throat Ears, Nose & Throat: denies: Nasal congestion - Cardiovascular Cardiovascular: reports: Edema (improved BLE), Decr. exercise tolerance. denies: Chest pain - Respiratory Respiratory: denies: Cough - Gastrointestinal Gastrointestinal: reports: Good appetite (imrpoved, see HPI). denies: Constipation, Vomiting - Genitourinary Genitourinary: reports: Incontinence. denies: Dysuria - Musculoskeletal Musculoskeletal: reports: Muscle weakness (worsened after UTI in July 2020), Assistive devices, Transfer issues. denies: Joint pain - Integumentary Integumentary: denies: Rash - Neurological Neurological: reports: General weakness, Memory problems. denies: Headache - Psychiatric Psychiatric: reports: Depression - Endocrine Endocrine: reports: Diabetes type 2 (controlled with metformin with blood gluoce checked twice a week on Mon and Fri (152,134, 125)) - Hematologic/Lymphatic Hematologic/Lymph: reports: Recurrent infections (Typically has a UTI 2-3 times per year per daughter's report) - All Other Systems All Other Systems: reports: Reviewed and negative (ROS supplemented by patient's daughter,Kassandra and RN Radha as patient is a poor historian due to cognitive impairment.) Physical Exam - Vital Signs Temperature: 36.7 C Pulse Rate: 60 O2 Saturation: 98 (on RA) Blood Pressure: 130/70 (right wrist) - Physical Exam General Appearance: positive: No acute distress, Alert, Other (dressed, overweight OOB in recliner) Eyes Bilateral: positive: Normal inspection ENT: positive: No signs of dehydration Neck: positive: Trachea midline Cardiovascular: positive: Regular rate & rhythm, No murmur Respiratory: positive: No respiratory distress, Breath sounds nml Abdomen: positive: Non-tender, Soft, Nml bowel sounds, Obese Skin: positive: Other (mild erythema under b/l breasts and right pannus consistent with candidasis with no visible open areas) Extremities: positive: Pedal edema (trace BLE), Other (+DJD changes to b/l hands) Neurologic/Psychiatric: positive: Disoriented to time, Weakness (generalized, BLE 4-/5), Flat affect, Other (Responds with minimal words or short sentances.). negative: Disoriented to person, Disoriented to place Palliative Care - POLST Patient has POLST: Yes POLST Status: DNR, Comfort Measures Pain: No pain Drowsiness/Sedation: Mild (1-3) Anorexia: None Sleep: Sleeps well Constipation: Managed Performance Status: Patient has had a decrease in her ability to ambulate after recent urinary tract infection in early July 2020. She is requiring increased assistance from facility staff as well as her daughter for transfers. Her appetite has improved. She requires assistance with pericare and bathing. She is incontinent of bladder. - Palliative Care Discussion: The patient has recently sustained further functional decline in the setting of a recent urinary tract infection and has not returned to her previous baseline functional status. Patient would benefit from physical therapy support within her home setting for lower extremity strengthening with a goal to return as close as possible to her former baseline function with ambulation with a walker and fall prevention. The patient's daughter continues to struggle with the patient's continued cognitive and functional decline. The patient's daughterGrecia recognizes that the patient wishes to focus on comfort but not wish for "any heroics" but it is difficult for the patient's daughter to see any type of suffering for the patient. Discussed with the patient's daughter that if and when the next event occurs such as a UTI will have a family meeting between the patient's daughter and her siblings for discussion regarding plan of care moving forward regarding interventions versus transition to hospice services if appropriate and patient's daughter is on board with this intervention and has discussed this with her siblings. Impression and Recommendations - Palliative Care Impression: This is a karthik 85-year-old female with underlying dementia likely Alzheimer's in nature with consistent generalized weakness after recent urinary tract infection that has persisted as well as osteoarthritis contributing to her generalized weakness, and cutaneous candidiasis. Will request home health physical therapy for lower extremity strengthening and support. Palliative care to continue to build support, provide care coordination, symptom management and advance care planning transition to hospice services when medically appropriate. Recommendations/Counseling Done: 1. Physical deconditioning due to osteoarthritis and in the setting of recent urinary tract infection. Patient is having lower extremity weakness and difficulty ambulating independently and is utilizing a wheelchair more consistently and would benefit from home health physical therapy for strengthening and fall prevention. 2. Cutaneous candidiasis to bilateral breasts and under her right abdominal pannus. Continue ketoconazole cream as ordered. No evidence of open areas. [facility] Interdry fabric in the future as this is moisture wicking. Daughter continues to provide assistance with personal care. 3. Dementia, likely Alzheimer's given the patient's family history. Chronic. Progressive. Supportive care. On no disease modifying agents and resides in assisted living environment. Given the patient's advanced age and chronic comorbidities a gradual decline is expected. 4. History of UTIs. Last UTI treated in early July 2020. Patient's daughter/DPOA continues to wish to weigh benefits versus burdens in the future regarding antibiotic treatment versus transitioning to hospice services. The patient's daughter wishes to honor the patient's desire to remain in her home setting at [facility] for end-of-life. The patient's daughter in the future prior to initiation of treatment would wish to consult her siblings for interventions and would plan to do a family conference for decision making in the future. [id number] for home health physical therapy Patient has had increased lower extremity weakening due to her underlying osteoarthritis and in the setting of recent urinary tract infection resulting in decrease in functional ability and would benefit from home health physical therapy for evaluation and treatment for strengthening of her lower extremities for transfer training with the goal to improve her ability to bear weight and pivot, take steps with ambulation and make safe transfers. It is a considerable and taxing effort for her to leave her facility. CPT 14650 Plan of care reviewed with facility RN, Tiara. Contacted the patient's daughter/DPOA Grecia [phone] and updated regarding clinical status and referral to home health physical therapy and in agreement with plan care. Ques tions answered and addressed. Disclaimer: The chart note was formulated using voice recognition technology and unfortunately sound alike errors may occur.
== END 2020-08-16 10:31 | disposition home or self-care (01) ==
LOC: PC 10:30
PROVIDERS: ATTEND Nurse Practitioner Family
DX: Z51.5 Encounter for palliative care (principal); R53.1 Weakness; M15.9 Polyosteoarthritis, unspecified; B37.2 Candidiasis of skin and nail; F03.90 Unspecified dementia, unspecified severity, without behavioral disturbance, psychotic disturbance, mood disturbance, and anxiety; Z87.891 Personal history of nicotine dependence; E11.9 Type 2 diabetes mellitus without complications; Z79.84 Long term (current) use of oral hypoglycemic drugs; Z87.440 Personal history of urinary (tract) infections; Z66 Do not resuscitate

== ENCOUNTER 2020-08-31 09:15 | Outpatient (CLI) | payer MEDICARE, OTHER ==
--- NOTE | 2020-08-31 18:23 | CONSULTATION NOTE ---
Palliative Care Follow Up - Referral Referring Provider: Karoline Raymond PA-C Time of Visit: [id number] Referral setting: Assisted living Referral Reason: Physical Deconditioning/ DM type II/Dementia - Information Sources Records reviewed: Previous records reviewed History/Review of Systems obtained from: Patient, Family (daughter/DPDAVIE,Ivana and SHELTON Cristina), Nursing (MERLINE Garcia) Exam limitations: Clinical condition (Advanced Dementia) - History of Present Illness Update Brief HPI Update: This is an 85-year-old female who was seen in follow-up today in her apartment at [facility] due to continued generalized weakness with physical deconditioning, diabetes mellitus type 2, dementia, and advanced care planning. The patient's daughter reports that over the last 2 weeks the patient has continued to decline. She is been opting to stay in bed. She is a two-person assist now to get up out of bed and is requiring assistance for personal care in bed and would benefit from a hospital bed. She is also had a decrease in her oral intake. She has had a gradual weight loss with last documented weight at 164 pounds on 08/11/2020 and previously was 172 pounds in May 2020. Patient's family wishes to focus on comfort measures with in the facility environment. Despite these concerns as stated above the patient is presently out of bed in her wheelchair this morning bright and alert with no evidence of acute distress. Patient's daughter and MERLINE Menjivar reports that while the patient was in the b athroom yesterday she had a near collapse possibly due to defecation versus dehydration from excessive heat from the outside temperatures but did not pass out. The patient is looking to consume some of her meal for breakfast today. Upon review of her MAR and her blood glucose levels she has ranged fasting as follows 152, 134, 125, 03/05/2011, 122, 102, 136, 165. She continues on Metformin extende d release 500 mg in the evening. She has not had any recent falls. No evidence of behavioral disturbances. She continues to have Bible study sessions with the palliative care optical goods drilling machine operator. Again, the patient is seen out of bed in her nightgown bright and alert in her wheelchair. She responds to questions when addressed with short sustained answers. No evidence of acute distress. Past Medical History: Patient has a past medical history of hypertension, hyperlipidemia, atrial fibrillation on Pradaxa, lung nodule, cognitive impairment, diabetes mellitus type 2, breast cancer, IBS, osteoporosis, radiation to the left breast and lumpectomy at age 68, cataracts, history of tobacco abuse, dementia. 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 She has a degree in education that began at [employer] and then completed at [employer]. She has 3 children, 1 daughter and 2 sons. Her daughter, Grecia is her DPOA with contact number [phone]. Grecia is a schoolteacher and typically Mondays are the best days for her to meet in person. She has been residing in [place] for the last 4 years. She is also being supported by the palliative care optical goods drilling machine operator and they have formed a [facility] study group. Medications/Allergies - Medications Home Medications: Ambulatory Orders Medication Instructions Recorded Confirmed Atenolol 100 mg PO DAILY 07/14/13 05/19/20 Lisinopril/Hydrochlorothiazide 0.5 each PO DAILY 07/14/13 05/19/20 [Lisinopril-Hctz 20-25 mg Tab] Metformin HCl [Glucophage] 500 mg PO QPM 07/14/13 05/19/20 Dabigatran Etexilate Mesylate 150 mg PO BID 07/20/18 05/19/20 [Pradaxa] Furosemide [Lasix] 20 mg PO DAILY 05/19/20 05/19/20 Psyllium Husk [Metamucil] 1 PO DAILY MDD 1 scoop daily 05/19/20 Refresh Liquigel 1% 1 drops EACHEYE QID 05/19/20 Ketoconazole 2% Cream [Nizoral 2% 1 applic TP DAILY 08/16/20 08/16/20 Cream] - Allergies Allergies/Adverse Reactions: Allergies Allergy/AdvReac Type Severity Reaction Status Date / Time Sulfa (Sulfonamide Allergy Intermediate Rash Verified 06/07/20 16:47 Antibiotics) Review of Systems - Constitutional Constitutional: reports: Fatigue (waxes and wanes but has been more present over last 2 weeks per family report), Weight loss (weight 164lb 08/11/2020 from 172lb May 2020). denies: Fever, Poor appetite - Eyes Eyes: reports: Other (h/o of dry eyes with refresh eye drops scheduled) - Ears, Nose & Throat Ears, Nose & Throat: denies: Dentures - Cardiovascular Cardiovascular: reports: Decr. exercise tolerance. denies: Chest pain, Edema (controlled with diuretic and recent elevation as opting to stay in bed than get up) - Respiratory Respiratory: denies: Cough - Gastrointestinal Gastrointestinal: reports: Good appetite (imrpoved, see HPI). denies: Constipation, Vomiting - Genitourinary Genitourinary: reports: Incontinence. denies: Dysuria - Musculoskeletal Musculoskeletal: reports: Muscle weakness (worsened after UTI in July 2020), Assistive devices, Transfer issues. denies: Joint pain - Integumentary Integumentary: denies: Rash - Neurological Neurological: reports: General weakness, Memory problems. denies: Dizziness - Psychiatric Psychiatric: reports: Depression - Endocrine Endocrine: reports: Diabetes type 2 (controlled with metformin with blood gluoce checked twice a week on Mon and Fri see HPI for full details) - Hematologic/Lymphatic Hematologic/Lymph: reports: Recurrent infections (Typically has a UTI 2-3 times per year per daughter's report) - All Other Systems All Other Systems: reports: Reviewed and negative (ROS supplemented by patient's daughter,Kassandra, SHELTON Cristina and RN Radha as patient is a poor historian due to cognitive impairment.) Physical Exam - Vital Signs Pulse Rate: 87 O2 Saturation: 95 (on RA) Blood Pressure: 118/72 - Physical Exam General Appearance: positive: No acute distress, Alert, Other ( overweight OOB in w/c) Eyes Bilateral: positive: Normal inspection, PERRL ENT: positive: No signs of dehydration. negative: Other (no dentures) Neck: positive: Trachea midline Cardiovascular: positive: Regular rate & rhythm Respiratory: positive: No respiratory distress, Breath sounds nml. 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 negative: Disoriented to person, Disoriented to place Palliative Care - POLST Patient has POLST: Yes POLST Status: DNR, Comfort Measures Pain: No pain - Palliative Care Discussion: The patient continues to demonstrate functional decline And has not returned to her former baseline function since a urinary tract infection and has been opting to stay in bed. She is scheduled to work with home health physical therapy and would benefit from lower extremity strengthening with the goal to return close to her former baseline as possible as well as fall prevention. Recommendations made to the patient's family for obtainment of a hospital bed for ease of transfers and care as the patient progresses further in her underlying dementia as she is expected to progress. The patient's family wishes to focus on comfort and have questions regarding transitions to hospice services. The patient is demonstrating gradual functional and cognitive decline with noted weight loss of 8 pounds in 4 months or approximate 5% weight loss. Reviews potential pathophysiology and heterogenicity of underlying dementia would expect a continued, gradual decline and normalize the family's feelings regarding the progression of dementia. At the present time, the patient does not present with appropriateness to transfer to hospice services but it may a have an event as she is at high risk for potential sequelae to determine a sooner transition. At the patient's family wishes to focus on comfort and the patient wishes to decrease her pill burden will discontinue her pravastatin and coenzyme Q 10 as well as patient's blood glucose routine checks. Will not discontinue Pradaxa at the present time as the patient has is a underlying fear of having a CVA like her mother and being debilitated. At the present time the fear and risk of having a CVA due to her underlying atrial fibrillation outweighs potential risk. Impression and Recommendations - Palliative Care Impression: This is a karthik 85-year-old female with underlying dementia likely Alzheimer's in nature with physical deconditioning with generalized weakness and need for advanced care planning. She is scheduled to work with home health physical therapy tomorrow. Her blood glucose levels have been below 170 and would benefit from discontinuation of routine glucose checks. Out of care will continue to build rapport, provide care coordination, symptom management, advance care planning with transition to hospice services when medically appropriate. Recommendations/Counseling Done: 1. Physical deconditioning. Continues to persist with lower extremity weakness and requirement of two-person transfers. Discussed with patient's family today obtainment of a hospital bed with either a rent to own through a company such as [employer] or obtainment of a used hospital bed from the [employer] in [facility] with contact numbers provided. Scheduled to work with home health physical therapy from [facility] tomorrow and would continue to move forward with working with home health physical therapy. Fall precautions. 2. Hyperlipidemia. Lengthy discussion with the patient's daughter and [id number] and given time to benefit of secondary prevention to discontinue pravastatin and coenzyme Q 10 given the patient's advanced age, chronic comorbidities, and desire to focus on comfort. All parties in agreement with plan of care. 3. Atrial fibrillation. continue atenolol for rate control. On anticoagulation with Pradaxa. Given the patient's fear of development of CVA this concern and need to focus on comfort outweighs the risk for discontinuation. We will continue Pradaxa at the present time and family in agreement. If the risk of continuation of Pradaxa outweigh the benefits such as increased risk of falls then would have a future discussion regarding discontinuation and family again in agreement. 4. Weight loss. In the setting of advancing dementia. Present weight 164 pounds. 8 pound weight loss in the last 4 months. Continue to monitor weight trends every other week. Continue to in encourage a meal consumption but advised not to force and after 3 offerings would not push meal consumption further with family verbalizing understanding and agreement. With continued weight loss trends we will continue to monitor the need for continuation of oral diuretic therapy in the future. 5. Diabetes mellitus type 2. Patient has a strong desire to have her blood glucose level checked discontinued. Blood glucose levels have been less than 165 upon review. Discontinue blood glucose level checks. Continue Metformin as ordered. Request that blood glucose level be obtained as needed if signs and symptoms of hypoglycemia or hyperglycemia such as sweating, increased thirst, confusion, nausea, vomiting, change in vision, etc. Request that PCP be notified of blood glucose levels less than 70 or greater than 300. Continue to monitor. 6. Dementia, likely Alzheimer's given patient's family history. Chronic. Progressive. Supportive care. No disease modifying agents and resides in assisted living environment. Normalized the patient's feelings and concerns regarding progression of dementia. At the present time, patient does not meet qualifications for hospice services. The patient is eligible for hospice services the patient's family wishes to transition to hospice. Given the patient's advanced age and chronic comorbidities a gradual decline is expected. Total time spent 50 minutes with greater than 50% of this spent in counseling and coordination of care with patient, daughter/DPOA and DIL; review of escalation vs de-escalation of care; review of hospice qualifications r/t patient's chronic co-morbidities; examination of patient; review of symptom management and anticipatory guidance. Disclaimer: The chart note was formulated using voice recognition technology and unfortunately sound alike errors may occur.
== END 2020-08-31 09:16 | disposition home or self-care (01) ==
LOC: PC 09:15
PROVIDERS: ATTEND Nurse Practitioner Family
DX: Z51.5 Encounter for palliative care (principal); M62.81 Muscle weakness (generalized); R63.4 Abnormal weight loss; E11.9 Type 2 diabetes mellitus without complications; E78.5 Hyperlipidemia, unspecified; I48.91 Unspecified atrial fibrillation; F03.90 Unspecified dementia, unspecified severity, without behavioral disturbance, psychotic disturbance, mood disturbance, and anxiety; Z79.84 Long term (current) use of oral hypoglycemic drugs; Z79.899 Other long term (current) drug therapy; Z79.01 Long term (current) use of anticoagulants; Z74.1 Need for assistance with personal care; Z74.09 Other reduced mobility; Z87.440 Personal history of urinary (tract) infections; Z66 Do not resuscitate

== ENCOUNTER 2020-09-16 09:05 | Outpatient (CLI) | payer MEDICARE, OTHER ==
--- NOTE | 2020-09-16 14:50 | CONSULTATION NOTE ---
Palliative Care Follow Up - Referral Referring Provider: Karoline Raymond PA-C Time of Visit: Referral setting: Assisted living Referral Reason: Dementia/Debility/Advanced Care Planning - Information Sources Records reviewed: Previous records reviewed History/Review of Systems obtained from: Patient, Family (daughter/DPOAKassandra and son, Eran), Nursing (MERLINE Garcia) Exam limitations: Clinical condition (Advanced Dementia) - History of Present Illness Update Brief HPI Update: This is an 85-year-old female who is seen in follow-up today in her apartment in [facility] due to generalized weakness with physical deconditioning, dementia, and advance care planning with her son, Eran and daughter/DPDAVIE Paige present at the bedside. In August 2020 the patient's began showing increased difficulty with ambulation with no signs or symptoms of an acute infection. She has had an approximate 5% weight loss since May 2020. As she was beginning to become a two-person transfer the patient's daughter obtained a hospital bed for the patient and unfortunately due to the patient's advanced debility and underlying dementia and inability to follow directions physical therapy from [facility] did not feel that she was an appropriate admission for continuation of physical therapy and the patient's family now recognizes this. The patient has steadily become more alert however, she is now essentially bedbound. She is typically not getting up into her recliner chair during the y. The family is recognizing that this is likely a new normal. The patient herself is comfortable and denies any acute reports of discomfort and displays no visible distress. She continues to consume most of her meals. She specifically loves fresh fruit. The RNTiara at the facility was requesting that this LAST SCOURER evaluate the rash under the patient's right pannus today as the patient is prone to [place] due to her body habitus and increased risk of moisture. She is not had any falls. No evidence of behavioral disturbances. She continues to have Bible study sessions with the palliative care heavy machinery operator which she looks forward to. The patient is seen sitting up in her hospital bed in her Nightgown bright and alert. She responds to questions when addressed but are typically short and answers. The patient and daughter had an informational visit with [facility] hospice services earlier this month and at the present time the patient is not a meeting hospice criteria. Past Medical History: Patient has a past medical history of hypertension, hyperlipidemia, atrial fibrillation on Pradaxa, lung nodule, cognitive impairment, diabetes mellitus type 2, breast cancer, IBS, osteoporosis, radiation to the left breast and lumpectomy at age 68, cataracts, history of tobacco abuse, dementia. 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 She has a degree in education that began at [employer] and then completed at [employer]. She has 3 children, 1 daughter and 2 sons. Her daughter, Grecia is her DPOA with contact number [phone]. Grecia is a schoolteacher and typically Mondays are the best days for her to meet in person. She has been residing in [place] for the last 4 years. The family has recently hired an aide, Maggie who is coming twice a week for approximately 1-1/2 hours to provide bathing and support as a private caregiver. She is also being supported by the palliative care heavy machinery operator and they have formed a Bible study group. from the [facility] has brought in and Eucharist for the patient. Medications/Allergies - Medications Home Medications: Ambulatory Orders Medication Instructions Recorded Confirmed Atenolol 100 mg PO DAILY 07/14/13 05/19/20 Lisinopril/Hydrochlorothiazide 0.5 each PO DAILY 07/14/13 05/19/20 [Lisinopril-Hctz 20-25 mg Tab] Metformin HCl [Glucophage] 500 mg PO QPM 07/14/13 05/19/20 Dabigatran Etexilate Mesylate 150 mg PO BID 07/20/18 05/19/20 [Pradaxa] Furosemide [Lasix] 20 mg PO DAILY 05/19/20 05/19/20 Psyllium Husk [Metamucil] 1 PO DAILY MDD 1 scoop daily 05/19/20 Refresh Liquigel 1% 1 drops EACHEYE QID 05/19/20 Ketoconazole 2% Cream [Nizoral 2% 1 applic TP DAILY 08/16/20 08/16/20 Cream] Nystatin/Triamcin 1 applic TP BID MDD x7 days then 09/16/20 09/16/20 [Nystatin-Triamcinolone Ointm] d/c - Allergies Allergies/Adverse Reactions: Allergies Allergy/AdvReac Type Severity Reaction Status Date / Time Sulfa (Sulfonamide Allergy Intermediate Rash Verified 06/07/20 16:47 Antibiotics) Review of Systems - Constitutional Constitutional: reports: Fatigue (see HPI, has improved), Weight loss (Right MAC 22cm 09/16/2020; weight 164lb 08/11/2020 from 172lb May 2020;). denies: Fever, Poor appetite - Eyes Eyes: reports: Other (h/o of dry eyes with refresh eye drops scheduled) - Ears, Nose & Throat Ears, Nose & Throat: reports: Hearing loss. denies: Hearing aids - Cardiovascular Cardiovascular: denies: Chest pain, Edema - Respiratory Respiratory: reports: Other (Occasionally will have coughing spells during meals). denies: Cough - Gastrointestinal Gastrointestinal: reports: Good appetite ( see HPI). denies: Constipation, Vomiting - Genitourinary Genitourinary: reports: Incontinence. denies: Dysuria - Musculoskeletal Musculoskeletal: reports: Muscle weakness, Assistive devices, Transfer issues. denies: Joint pain - Integumentary Integumentary: reports: Rash (right abdominal panus) - Neurological Neurological: reports: General weakness, Memory problems. denies: Dizziness - Psychiatric Psychiatric: reports: Depression - Endocrine Endocrine: reports: Diabetes type 2 (controlled with metformin) - Hematologic/Lymphatic Hematologic/Lymph: reports: Recurrent infections - All Other Systems All Other Systems: reports: Reviewed and negative (ROS supplemented by patient's daughter,Kassandra, son Eran and RN Radha as patient is a poor historian due to dementia.) Physical Exam - Vital Signs Temperature: 36.5 C Pulse Rate: 74 O2 Saturation: 96 (on RA) Blood Pressure: 113/63 (right wrist) - Physical Exam General Appearance: positive: No acute distress, Alert, Other (overweight,) Eyes Bilateral: positive: Normal inspection ENT: positive: No signs of dehydration Neck: positive: Trachea midline Cardiovascular: positive: Regular rate & rhythm Respiratory: positive: No respiratory distress, Breath sounds nml, Rales (LLL) Abdomen: positive: Non-tender, Soft, Nml bowel sounds, Obese Skin: positive: Other (Erythema under right abdominal panus consistent with candidasis). 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 negative: Disoriented to person, Disoriented to place Palliative Care - POLST Patient has POLST: Yes POLST Status: DNR, Comfort Measures Pain: No pain Constipation: No Performance Status: Patient has had a functional decline and is no longer ambulatory. She has been able to stand and pivot once getting out of bed in the last few weeks. Has a hospital bed. Requires assistance with pericare and bathing. She is incontinent of bladder. FAS T7 C - Palliative Care Discussion: The patient's daughter/DPOA with the support of her brothers his visualizing the patient's decline and recognizing that this is "the new normal." All of the patient's children wish to focus on comfort measures in her present facility of [place] assisted living. The patient in the past had been very adamant that she never wish to go to a nursing facility and her children wish to honor this. Ultimately, when the time is appropriate the family wishes to transition to hospice services. The patient's family does express some concerns with the patient's ability to remain at [facility] as her dementia progresses. Discussed having an extra outer layer of support with continued utilization of supplementing private caregivers would be able to provide an extra added layer of support. Encourage the family that if any point they had concerns regarding the patient's caregiving needs to address it with the insurance manager. Supportive listening provided and normalization of feelings. Impression and Recommendations - Palliative Care Impression: This is a karthik 85-year-old female with underlying dementia, likely Alzheimer's in nature, FAS T7 C who has now progressed to essentially bedbound state. She does have topical candidiasis under her right abdominal fold that would benefit from topical nystatin/triamcinolone cream and then transitioning to an interdry cloth to reduce moisture and provide wicking. The patient's family is in agreement and strongly vocal to focus on comfort measures with a transition to hospice services when appropriate for the patient. Palliative care will continue to provide care coordination, symptom management, advance care planning with transition to hospice services when medically appropriate. Recommendations/Counseling Done: 1. Topical candidiasis under her right abdominal pannus. Initiate nysta tin/triamcinolone application with a pea-sized amount twice daily x7 days then discontinue. Once nystatin/triamcinolone has been discontinued then daughter is to obtain interdry cough fabric to be utilized under the patient's right abdominal pannus applied in the morning and removed in the evening to provide moisture wicking. This may be used up to five times each individual cloth if it is not visibly soiled and washed with water and air dried. Daughter plans to supply. 2. Bedbound status. Patient continues with persistent lower extremity weakness and this is likely progression of her dementia. Resulting in a bedbound state. She now is in a hospital bed. Fall precautions. Immobility creates a vicious cycle and can decondition the body rapidly and this was reviewed with the dana ramírez's family today. 3. Weight loss. In the setting of advancing dementia. Facility staff is unable to weigh the patient due to her bedbound status. Last recorded weight 164 pounds with an 8 pound weight loss in the last 4 months. Right MAC obtained today 22 cm. We'll continue to monitor the right MAC moving forward as is and unlikely to have accurate weights moving forward due to the patient's bedbound state. Continue to encourage meal consumption if the patient is interested but would not force. Continue to monitor. 4. Dementia, likely Alzheimer's given the patient's family history. Chronic. Progressive. Supportive care. On no disease modifying agents and resides in assisted living environment. Normalized the family's feelings and concerns regarding the progression of dementia. At the present time, the patient does not meet qualifications for hospice services and is status post hospice informational visit. Given the patient's advanced age and chronic comorbidities a gradual decline is expected. 5. Advanced care planning. POLST in place as DN AR with comfort measures. The patient and her family wish to focus on quality of life and symptom management with in her apartment at [facility]. She is very clear that she never wish to go to a facility environment due to past traumas related to her mother. At any point that the patient is appropriate for hospice the family would like to make this transition. Supportive listening provided. I Total time Spent 40 min with greater than 50% of this spent in counseling bowman tion of care with the patient, daughter/DPOA and son, Eran; review of hospice qualifications related to patient's chronic comorbidities; examination of patient; review of symptom management and anticipatory guidance. Disclaimer: The chart note was formulated using voice recognition technology and unfortunately sound alike errors may occur.
== END 2020-09-16 09:06 | disposition home or self-care (01) ==
LOC: PC 09:05
PROVIDERS: ATTEND Nurse Practitioner Family
DX: Z51.5 Encounter for palliative care (principal); B37.2 Candidiasis of skin and nail; Z74.01 Bed confinement status; R63.4 Abnormal weight loss; F03.90 Unspecified dementia, unspecified severity, without behavioral disturbance, psychotic disturbance, mood disturbance, and anxiety; Z66 Do not resuscitate

== ENCOUNTER 2020-10-26 11:35 | Outpatient (CLI) | payer MEDICARE, OTHER ==
--- NOTE | 2020-10-26 14:22 | CONSULTATION NOTE ---
Palliative Care Follow Up - Referral Referring Provider: Karoline Raymond PA-C Time of Visit: Initiated 1135 Referral setting: Assisted living Referral Reason: Topical Candidiasis/Dementia/Debility - Information Sources Records reviewed: Previous records reviewed History/Review of Systems obtained from: Patient, Family (Ivana (daughter) via phone on 10/25), Nursing (MERLINE Garcia) Exam limitations: Clinical condition (Advanced Dementia) - History of Present Illness Update Brief HPI Update: [facility] due to generalized weakness, dementia, and topical candidiasis. In August 2020 the patient began showing increased difficulty with ambulation with no signs or symptoms of an acute infection. She has had an approximate 5% weight loss since May 2020. She is mainly staying in her hospital bed in her room. She is status post evaluation with [facility] with out continuation of services due to her advanced dementia. Last MAC performed on 09/16/2020 on the right arm was 22 cm. The patient's appetite continues to wax and wane. The patient has been struggling with topical candidiasis under her bilateral breasts and most specifically to her right pannus. She has been trialed on nystatin/triamcinolone ointment as well as topical nystatin powder and ketoconazole. At the present time she is still receiving ketoconazole cream as well as nystatin powder that is not providing effective relief. She is having Interdry fabric placed to her right pannus however, staff is still utilizing cre ams to the site which can clog the fabric for it wicking properties. The patient's daughter, Grecia expressed increased redness to the sites as well as some cracking. This was not visualized today however the patient does continue to have erythema to these areas. The patient is pleasantly confused without any evidence of distress. She continues to have Bible study sessions with the palliative care ferruler. She is seen sitting up in bed in her nightgown bright and alert. She has the TV on and has been looking at the newspaper. She responds to questions that are addressed to her that are typically short and answers. Past Medical History: Patient has a past medical history of hypertension, hyperlipidemia, atrial fibrillation on Pradaxa, lung nodule, cognitive impairment, diabetes mellitus type 2, breast cancer, IBS, osteoporosis, radiation to the left breast and lumpectomy at age 68, cataracts, history of tobacco abuse, dementia. 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 She has a degree in education that began at [employer] and then completed at [employer]. She has 3 children, 1 daughter and 2 sons. Her daughter, Grecia is her DPOA with contact number [phone]. Grecia is a schoolteacher and typically Mondays are the best days for her to meet in person. She has been residing in [place] for the last 4 years. The family has recently hired an aide, Maggie who is coming twice a week for approximately 1-1/2 hours to provide bathing and support as a private caregiver. She is also being supported by the palliative care ferruler and they have formed a [facility] study group. t Medications/Allergies - Medications Home Medications: Ambulatory Orders Medication Instructions Recorded Confirmed Atenolol 100 mg PO DAILY 07/14/13 05/19/20 Lisinopril/Hydrochlorothiazide 0.5 each PO DAILY 07/14/13 05/19/20 [Lisinopril-Hctz 20-25 mg Tab] Metformin HCl [Glucophage] 500 mg PO QPM 07/14/13 05/19/20 Dabigatran Etexilate Mesylate 150 mg PO BID 07/20/18 05/19/20 [Pradaxa] Furosemide [Lasix] 20 mg PO DAILY 05/19/20 05/19/20 Psyllium Husk [Metamucil] 1 PO DAILY MDD 1 scoop daily 05/19/20 Refresh Liquigel 1% 1 drops EACHEYE QID 05/19/20 - Allergies Allergies/Adverse Reactions: Allergies Allergy/AdvReac Type Severity Reaction Status Date / Time Sulfa (Sulfonamide Allergy Intermediate Rash Verified 06/07/20 16:47 Antibiotics) Review of Systems - Constitutional Constitutional: reports: Weight loss (Right MAC 22cm 09/16/2020; weight 164lb 08/11/2020 from 172lb May 2020;). denies: Fever, Poor appetite - Eyes Eyes: denies: Irritation - Ears, Nose & Throat Ears, Nose & Throat: reports: Hearing loss. denies: Hearing aids - Cardiovascular Cardiovascular: denies: Chest pain, Edema - Respiratory Respiratory: denies: Cough - Gastrointestinal Gastrointestinal: reports: Good appetite ( see HPI). denies: Constipation, Vomiting - Genitourinary Genitourinary: reports: Incontinence. denies: Dysuria - Musculoskeletal Musculoskeletal: reports: Muscle weakness, Assistive devices, Transfer issues. denies: Joint pain - Integumentary Integumentary: reports: Rash (right abdominal panus and under b/l breasts) - Neurological Neurological: reports: General weakness, Memory problems. denies: Dizziness - Psychiatric Psychiatric: reports: Depression - Endocrine Endocrine: reports: Diabetes type 2 (controlled with metformin) - Hematologic/Lymphatic Hematologic/Lymph: reports: Recurrent infections - All Other Systems All Other Systems: reports: Reviewed and negative (ROS supplemented by patient's daughter,Kassanrda and RN Radha as patient is a poor historian due to dementia.) Physical Exam - Vital Signs Temperature: 36.4 C Pulse Rate: 65 O2 Saturation: 97 (on RA) Blood Pressure: 106/60 (left wrist) - Physical Exam General Appearance: positive: No acute distress, Alert, Other ([facility] Eyes Bilateral: positive: Normal inspection ENT: positive: No signs of dehydration Neck: positive: Trachea midline Cardiovascular: positive: Regular rate & rhythm Respiratory: positive: No respiratory distress, Breath sounds nml, Rales (RLL) Abdomen: positive: Non-tender, Soft, Nml bowel sounds, Obese Skin: positive: Other (Erythema under right abdominal panus and b/l brests consistent with candidasis with creams applied). 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 negative: Disoriented to person, Disoriented to place Palliative Care - POLST Patient has POLST: Yes POLST Status: DNR, Comfort Measures Pain: No pain Performance Status: FAS T7 C - Palliative Care Discussion: The patient continues to have persistent and topical candidiasis specifically under her right pannus and under her bilateral breasts due to moisture. The daughter has been supplying Interdry fabric however, caregiving staff and private caregivers have been applying creams and to the site that are not effective in resolving the job. rash and are impeding the fabric from doing its job from an antiwicking perspective. Would benefit from a dose of Diflucan 150 mg x 1 dose and then reevaluate next week if additional dose is needed. Would also discontinue all creams to the site and utilize Interdry fabric without any creams. Impression and Recommendations - Palliative Care Impression: This is a karthik 85-year-old female with underlying dementia, likely Alzheimer's in nature, FAS T7 C who is now on progressed to an essentially bedbound state. She continues to have topical candidiasis under her bilateral breasts and to her right pannus that continues to be persistent despite topical interventions and would benefit from oral antifungal medication, Diflucan x1 dose. Would then recommend transitioning to Interdry fabric under the affected folds. Palliative care will continue to provide care coordination, symptom management, and advance care planning with transition to hospice services when medically appropriate. Recommendations/Counseling Done: 1. Topical candidiasis under bilateral breasts and to right pannus. Continues to fail topical therapy. Initiate Diflucan 150 mg oral x1 dose. Discontinue ketoconazole cream and nystatin powder. Request utilization of Interdry fabric cloth to be placed under her right abdominal fold and under bilateral breasts. Apply at 8 AM and remove at 8 PM daily. May use cloth up to 5 times if not soiled. Rinse cloth with water and allowed to air dry before use. Daughter to supply. Request that creams and ointments not be utilized with interdry cloth. We will continue to monitor. 2. Bedbound status. Patient continues with persistent lower extremity weakness likely progression of her dementia. This is resulted in a bedbound state. She is now on a hospital bed. Fall precautions. Given it is extremely taxing for the patient to leave her home environment palliative care will continue to follow. 3. Dementia. Likely Alzheimer's in nature given patient's family history. Chronic. Progressive. Supportive care. On no disease modifying agents and resides in assisted living environment. Status pose hospice informational visit in September 2020. Given the patient's advanced age and chronic comorbidities a gradual decline is expected. 4. Advanced care planning. POLST in place as DN AR with comfort measures. The patient and her family have expressed a desire to focus on quality of life and symptom management within her apartment at [facility]. She now has a private caregiver coming in to provide additional care as well as oversight by her daughter/ELIS Grecia. CPT 12924 Messaged left for patient's daughter/DPDAVIEGrecia at [phone] updating regarding plan of care with message left and awaiting a return call. Discussed plan of care with facility RN, [facility] at [place] with questions answered and addressed. Disclaimer: The chart note was formulated using voice recognition technology and unfortunately sound alike errors may occur.
== END 2020-10-26 11:36 | disposition home or self-care (01) ==
LOC: PC 11:35
PROVIDERS: ATTEND Nurse Practitioner Family
DX: Z51.5 Encounter for palliative care (principal); F03.90 Unspecified dementia, unspecified severity, without behavioral disturbance, psychotic disturbance, mood disturbance, and anxiety; B37.2 Candidiasis of skin and nail; I10 Essential (primary) hypertension; I48.91 Unspecified atrial fibrillation; E11.9 Type 2 diabetes mellitus without complications; Z79.01 Long term (current) use of anticoagulants; Z85.3 Personal history of malignant neoplasm of breast; Z79.84 Long term (current) use of oral hypoglycemic drugs; Z66 Do not resuscitate; Z74.01 Bed confinement status

== ENCOUNTER 2020-11-03 11:00 | Outpatient (CLI) | payer MEDICARE, OTHER ==
--- NOTE | 2020-11-03 17:15 | CONSULTATION NOTE ---
Palliative Care Follow Up - Referral Referring Provider: Karoline Ham PA-C Time of Visit: Initiated 1100 Referral setting: Assisted living Referral Reason: Candidiasis - Information Sources Records reviewed: Previous records reviewed History/Review of Systems obtained from: Patient, Nursing Exam limitations: Clinical condition (Advanced dementia) - History of Present Illness Update Brief HPI Update: This is an 85-year-old female who was seen in follow-up today in her apartment in [facility] assisted living due to dermatitis due to candidiasis under her bilateral breasts and right pannus. The patient has been struggling with topical candidiasis under her bilateral breasts and right pannus for some time. She has been tried on nystatin/triamcinolone ointment as well as ketoconazole ointment and topical nystatin powder. All of these topical treatments have been discontinued and she has had a one-time dose of Diflucan 150 mg 1 week ago. She is now having Interdry fabric placed under her bilateral breasts in the morning and removed in the evening as well as to her right pannus for its wicking properties. There is no noted cracking today however, the candidiasis remains present. The patient is seen sitting up in bed in her hospital gown bright and alert. She has a TV on in her side table in reach. She responds to questions that are addressed to her her and is typically short in response. Past Medical History: Patient has a past medical history of hypertension, hyperlipidemia, atrial fibrillation on Pradaxa, lung nodule, cognitive impairment, diabetes mellitus type 2, breast cancer, IBS, osteoporosis, radiation to the left breast and lumpectomy at age 68, cataracts, history of tobacco abuse, dementia. 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 She has a degree in education that began at [employer] and then completed at [employer]. She has 3 children, 1 daughter and 2 sons. Her daughter, Grecia is her DPOA with contact number [phone]. Grecia is a schoolteacher and typically Mondays are the best days for her to meet in person. She has been residing in [facility] for the last 4 years. She is also being supported by the palliative care packing machine tender and they have formed a [facility] study group. Medications/Allergies - Medications Home Medications: Ambulatory Orders Medication Instructions Recorded Confirmed Atenolol 100 mg PO DAILY 07/14/13 05/19/20 Lisinopril/Hydrochlorothiazide 0.5 each PO DAILY 07/14/13 05/19/20 [Lisinopril-Hctz 20-25 mg Tab] Metformin HCl [Glucophage] 500 mg PO QPM 07/14/13 05/19/20 Dabigatran Etexilate Mesylate 150 mg PO BID 07/20/18 05/19/20 [Pradaxa] Furosemide [Lasix] 20 mg PO DAILY 05/19/20 05/19/20 Psyllium Husk [Metamucil] 1 PO DAILY MDD 1 scoop daily 05/19/20 Refresh Liquigel 1% 1 drops EACHEYE QID 05/19/20 Fluconazole [Diflucan] 150 mg PO .QWEEK 11/03/20 11/03/20 - Allergies Allergies/Adverse Reactions: Allergies Allergy/AdvReac Type Severity Reaction Status Date / Time Sulfa (Sulfonamide Allergy Intermediate Rash Verified 06/07/20 16:47 Antibiotics) Review of Systems - Constitutional Constitutional: reports: Weight loss (Right MAC 22cm 09/16/2020; weight 164lb 08/11/2020 from 172lb May 2020;). denies: Fever - Eyes Eyes: denies: Irritation - Ears, Nose & Throat Ears, Nose & Throat: reports: Hearing loss. denies: Hearing aids - Cardiovascular Cardiovascular: denies: Edema - Respiratory Respiratory: denies: Cough - Gastrointestinal Gastrointestinal: reports: Good appetite. denies: Constipation, Vomiting - Genitourinary Genitourinary: reports: Incontinence - Musculoskeletal Musculoskeletal: reports: Muscle weakness, Assistive devices, Transfer issues. denies: Joint pain - Integumentary Integumentary: reports: Rash (right abdominal panus and under b/l breasts) - Neurological Neurological: reports: General weakness, Memory problems - Psychiatric Psychiatric: reports: Depression - Endocrine Endocrine: reports: Diabetes type 2 (controlled with metformin) - Hematologic/Lymphatic Hematologic/Lymph: reports: Recurrent infections - All Other Systems All Other Systems: reports: Reviewed and negative (ROS supplemented by patient's caregiver and YOGI tMz at facility as patient is a poor historian due to dementia) Physical Exam - Vital Signs Temperature: 36.4 C Pulse Rate: 66 O2 Saturation: 97 (on RA) Blood Pressure: 107/61 (left wrist) - Physical Exam General Appearance: positive: No acute distress, Alert, Other (sitting up in hospital bed in her nightgown) ENT: positive: No signs of dehydration Neck: positive: Trachea midline Cardiovascular: positive: Regular rate & rhythm Respiratory: positive: No respiratory distress, Breath sounds nml Abdomen: positive: Non-tender, Soft, Nml bowel sounds, Obese Skin: positive: Other (Erythema under right abdominal panus and b/l brests consistent with candidasis without cracking and appears unchanged without Interdry fabic in place) Extremities: positive: No pedal edema, Other (+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 negative: Disoriented to person, Disoriented to place Palliative Care - POLST Patient has POLST: Yes POLST Status: DNR, Comfort Measures Pain: No pain - Palliative Care Discussion: Patient continues to have persistent dermatitis due to candidiasis under her right pannus and bilateral breasts due to moisture and underlying diabetes mellitus. She has failed topical interventions. She has had a one-time dose of Diflucan 150 mg and would benefit from a weekly course for a total of 4 weeks. She continues off of creams to the sites and encourage staff to utilize I nterdry fabric and this was really oriented to facility staff today. Impression and Recommendations - Palliative Care Impression: This is a 85-year-old female with underlying dementia, likely Alzheimer's in nature, FAS T7 C who is now no essentially bedbound. She continues to have dermatitis due to candidiasis under her bilateral breasts and to her right pannus that is persistent despite topical interventions and a one-time dose of Diflucan. She would benefit from Diflucan 150 mg weekly x3 weeks for a total of 4 weeks. Continue Interdry fabric under the affected folds. Palliative care will continue to provide care coordination, symptom management and advance care planning with transition to hospice services when medically appropriate. Recommendations/Counseling Done: 1.Dermatitis due to candidiasis under bilateral breasts and right pannus. Has failed topical therapy and one-time dose of Diflucan 150 mg. Remain off of topical creams. Initiate Diflucan 150 mg every week x3 weeks and therefore will have a total of 4 weeks of Diflucan. Patient's history of diabetes mellitus is contributing to persistence. Continue utilization of Interdry fabric to be placed under her right abdominal fold and bilateral breasts in the morning and removed in the evening. Reeducated facility staff regarding utilization of Interdry fabric. The patient's daughter is supplying the Interdry fabric. Continue to monitor. 2. Dementia. Likely Alzheimer's in nature given the patient's family history. Chronic. Progressive. Supportive care. On no disease modifying agents in assisted living environment. Status post hospice informational visit in September 2020. Given the patient's advanced age and chronic comorbidities a gradual Grant is expected. CPT 54540 Message left for patient's daughter/ELIS Paige at [phone] updating regarding plan of care and request to return call with any additional questions or concerns. Discussed plan of care with facility [facility] at [facility] with questions answered and addressed.
== END 2020-11-03 11:01 | disposition home or self-care (01) ==
LOC: PC 11:00
PROVIDERS: ATTEND Nurse Practitioner Family
DX: Z51.5 Encounter for palliative care (principal); Z66 Do not resuscitate; B37.2 Candidiasis of skin and nail; F03.90 Unspecified dementia, unspecified severity, without behavioral disturbance, psychotic disturbance, mood disturbance, and anxiety; Z74.01 Bed confinement status; E11.9 Type 2 diabetes mellitus without complications; Z79.84 Long term (current) use of oral hypoglycemic drugs; Z79.899 Other long term (current) drug therapy

== ENCOUNTER 2020-11-16 11:00 | Outpatient (CLI) | payer MEDICARE, OTHER ==
--- NOTE | 2020-11-16 13:35 | CONSULTATION NOTE ---
Palliative Care Follow Up - Referral Referring Provider: Karoline Ham PA-C Time of Visit: Initiated 1100 Referral setting: Assisted living Referral Reason: Moisture associated candidiasis - Information Sources Records reviewed: RN notes reviewed History/Review of Systems obtained from: Patient, Caregiver Exam limitations: Clinical condition (Advanced dementia) - History of Present Illness Update Brief HPI Update: This is an 85-year-old female who was seen in follow-up today in her apartment in [place] assisted living due to dermatitis secondary to candidiasis under her bilateral breasts and right pannus. The patient has been struggling with topical candidiasis on her bilateral breasts and right pannus for some time. She has been tried on nystatin/triamcinolone ointment as well as ketoconazole ointment and topical nystatin powder without improvement. She has begun Diflucan 150 mg weekly course x3 weeks however, upon review of MAR this is not appropriately scheduled and the patient did not receive the dose on 11/10 as was to occur. She is having Interdry fabric placed under her bilateral breasts in the morning and removed in the evening as well as her right pannus for wicking properties. Erythema appears to have improved under the left breast and continues to be present under the right breast as well as the right pannus. There is no evidence of cracking or discharge. The patient is seen sitting up in her hospital bed bright and alert. Her windows are slightly cracked but she reports that she is comfortable. She has a TV on and her side table is in reach. Past Medical History: Patient has a past medical history of hypertension, hyperlipidemia, atrial fibrillation on Pradaxa, lung nodule, cognitive impairment, diabetes mellitus type 2, breast cancer, IBS, osteoporosis, radiation to the left breast and lumpectomy at age 68, cataracts, history of tobacco abuse, dementia. 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 She has a degree in education that began at [employer] and then completed at [employer]. She has 3 children, 1 daughter and 2 sons. Her daughter, Grecia is her DPOA with contact number [phone]. Grecia is a schoolteacher and typically Mondays are the best days for her to meet in person. She has been residing in [place] for the last 4 years. She is also being supported by the palliative care machine sole leveler and they have formed a [facility] study group. Medications/Allergies - Medications Home Medications: Ambulatory Orders Medication Instructions Recorded Confirmed Atenolol 100 mg PO DAILY 07/14/13 05/19/20 Lisinopril/Hydrochlorothiazide 0.5 each PO DAILY 07/14/13 05/19/20 [Lisinopril-Hctz 20-25 mg Tab] Metformin HCl [Glucophage] 500 mg PO QPM 07/14/13 05/19/20 Dabigatran Etexilate Mesylate 150 mg PO BID 07/20/18 05/19/20 [Pradaxa] Furosemide [Lasix] 20 mg PO DAILY 05/19/20 05/19/20 Psyllium Husk [Metamucil] 1 PO DAILY MDD 1 scoop daily 05/19/20 Refresh Liquigel 1% 1 drops EACHEYE QID 05/19/20 Fluconazole [Diflucan] 150 mg PO .QWEEK 11/03/20 11/03/20 - Allergies Allergies/Adverse Reactions: Allergies Allergy/AdvReac Type Severity Reaction Status Date / Time Sulfa (Sulfonamide Allergy Intermediate Rash Verified 06/07/20 16:47 Antibiotics) Review of Systems - Constitutional Constitutional: reports: Weight loss (Right MAC 22cm 09/16/2020; weight 164lb 08/11/2020 from 172lb May 2020;). denies: Fever - Ears, Nose & Throat Ears, Nose & Throat: reports: Hearing loss. denies: Hearing aids - Cardiovascular Cardiovascular: denies: Chest pain, Edema - Respiratory Respiratory: denies: Cough - Gastrointestinal Gastrointestinal: reports: Good appetite. denies: Constipation, Vomiting - Genitourinary Genitourinary: reports: Incontinence - Musculoskeletal Musculoskeletal: reports: Muscle weakness, Assistive devices, Transfer issues. denies: Joint pain - Integumentary Integumentary: reports: Rash (right abdominal panus and under b/l breasts--see HPI for details) - Neurological Neurological: reports: General weakness, Memory problems - Psychiatric Psychiatric: reports: Depression - Endocrine Endocrine: reports: Diabetes type 2 (controlled with metformin) - Hematologic/Lymphatic Hematologic/Lymph: reports: Recurrent infections (h/o UTIs) - All Other Systems All Other Systems: reports: Reviewed and negative (ROS supplemented by patient's caregiver and [facility]OG[facility] Mtz at facility as patient is a poor historian due to dementia) Physical Exam - Vital Signs Temperature: 36.4 C Pulse Rate: 64 O2 Saturation: 94 (on RA) Blood Pressure: 104/63 (right wrist) - Physical Exam General Appearance: positive: No acute distress, Alert, Other (sitting up in hospital bed in her nightgown) Eyes Bilateral: positive: Normal inspection ENT: positive: No signs of dehydration Neck: positive: Trachea midline Cardiovascular: positive: Regular rate & rhythm Respiratory: positive: No respiratory distress, Breath sounds nml. 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 negative: Disoriented to person, Disoriented to place Palliative Care - POLST Patient has POLST: Yes POLST Status: DNR, Comfort Measures Pain: No pain - Palliative Care Discussion: Patient continues to have persistent dermatitis due to candidiasis under her right pannus and bilateral breasts due to moisture and underlying diabetes mellitus. She has failed topical interventions. On last evaluation, she was requested to have weekly Diflucan unfortunately, it appears that this has not followed through on the MAY. Will write order for Diflucan 150 mg once weekly on Fridays x4 weeks to have this be clearly written out for facility to follow. This will then be a total course of 5 weeks. She continues off creams to the sites and staff have been utilizing Interdry fabric as requested. Impression and Recommendations - Palliative Care Impression: This is an 85-year-old female with underlying dementia, likely Alzheimer's in nature, FAS T7 C who is now bedbound. She continues to have dermatitis due to candidiasis under her bilateral breasts and to her right pannus that is persistent despite topical interventions. She would benefit from continuation of Diflucan 150 mg weekly x4 weeks and this has been written out more clearly and specifically for facility to follow. Continue Interdry fabric to the affected folds. Palliative care will continue to provide care coordination, symptom management, advance care planning with transition to hospice when medically appropriate. Recommendations/Counseling Done: 1. Dermatitis due to candidiasis under bilateral breasts and right pannus. Has tried and has failed topical therapy. Remain off topical creams. Initiate Diflucan 150 mg every week on Fridays x4 weeks. Patient has a history of diabetes mellitus that is contributing to persistence. Continue utilization of Interdry fabric to be placed under her right abdominal fold and bilateral breasts in the morning and removed in the evening. Patient's daughter is suppl juliana the Interdry fabric. Continue to monitor. 2. Dementia. Likely Alzheimer's in nature given the patient's family history. Chronic. Progressive. Supportive care. On a disease modifying agents in assisted living environment. Status post hospice informational visit in September 2020. Given the patient's advanced age and chronic comorbidities a gradual decline is expected. CPT 86181 Plan of care reviewed with facility TRAFFIC ENGINEER Bibi and caregiver with questions answered and addressed. Message left for patient's daughter/ELIS Paige at [phone] updating regarding plan of care and request return call back with any additional questions or concerns. Disclaimer: The chart note was formulated using voice recognition technology and unfortunately sound alike errors may occur.
== END 2020-11-16 11:01 | disposition home or self-care (01) ==
LOC: PC 11:00
PROVIDERS: ATTEND Nurse Practitioner Family
DX: Z51.5 Encounter for palliative care (principal); B37.2 Candidiasis of skin and nail; E11.620 Type 2 diabetes mellitus with diabetic dermatitis; Z79.84 Long term (current) use of oral hypoglycemic drugs; F03.90 Unspecified dementia, unspecified severity, without behavioral disturbance, psychotic disturbance, mood disturbance, and anxiety; Z79.899 Other long term (current) drug therapy; Z74.01 Bed confinement status; Z66 Do not resuscitate

== ENCOUNTER 2020-11-29 11:55 | Outpatient (CLI) | payer MEDICARE, OTHER ==
--- NOTE | 2020-11-29 12:16 | CONSULTATION NOTE ---
Palliative Care Follow Up - Referral Referring Provider: Karoline Raymond PA-C Time of Visit: Intiated 1155 Referral setting: Assisted living Referral Reason: Dementia/Dermatitis - Information Sources Records reviewed: Previous records reviewed History/Review of Systems obtained from: Caregiver Exam limitations: Clinical condition (Advanced Dementia) - History of Present Illness Update Brief HPI Update: This is an 85-year-old female who was seen in follow-up today in her apartment in [facility] due to dermatitis secondary to candidiasis under her bilateral breasts and right pannus. The patient has been struggling with topical candidiasis on her bilateral breasts and right pannus for some time. She has been tried on nystatin/triamcinolone ointment as well as ketoconazole ointment and topical nystatin powder without improvement. Given on last evaluation, 11/16/2020 the patient was not recieving her weekly diflucan 150mg as ordered this was altered to be given weekly on Fridays and upon review of MAR has received the last two doses for a total of 4 weeks. She is having Interdry fabric placed under her bilateral breasts in the morning and removed in the evening as well as her right pannus for wicking properties. This was present on examination today. Erythema appears to have improved under the bilateral breasts but continues to persist under the right panus. There is no evidence of cracking or discharge. Last week, daughter left a message that there was an open area that PCP started treatment on. On examination today there is no visible open areas to lisbet-area, under affected folds or in visible areas. There is also no notation regarding a change in treatment on MAR upon review. The patient is seen sitting up in her hospital bed bright and alert. Her windows are slightly cracked but she reports that she is comfortable. She has a TV on and her side table is in reach. She has consumed all her breakfast and offers up on acute concerns. Past Medical History: Patient has a past medical history of hypertension, hyperlipidemia, atrial fibrillation on Pradaxa, lung nodule, cognitive impairment, diabetes mellitus type 2, breast cancer, IBS, osteoporosis, radiation to the left breast and lumpectomy at age 68, cataracts, history of tobacco abuse, dementia. 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 She has a degree in education that began at [employer] and then completed at [employer]. She has 3 children, 1 daughter and 2 sons. Her daughter, Grecia is her DPOA with contact number [phone]. Kassandra is a schoolteacher and has returned to in-person school. The patient has been residing in [place] for the last 4 years. She is also being supported by the palliative care trading manager and they have formed a [facility] study group. Medications/Allergies - Medications Home Medications: Ambulatory Orders Medication Instructions Recorded Confirmed Atenolol 100 mg PO DAILY 07/14/13 05/19/20 Lisinopril/Hydrochlorothiazide 0.5 each PO DAILY 07/14/13 05/19/20 [Lisinopril-Hctz 20-25 mg Tab] Metformin HCl [Glucophage] 500 mg PO QPM 07/14/13 05/19/20 Dabigatran Etexilate Mesylate 150 mg PO BID 07/20/18 05/19/20 [Pradaxa] Furosemide [Lasix] 20 mg PO DAILY 05/19/20 05/19/20 Psyllium Husk [Metamucil] 1 PO DAILY MDD 1 scoop daily 05/19/20 Refresh Liquigel 1% 1 drops EACHEYE QID 05/19/20 Fluconazole [Diflucan] 150 mg PO .QWEEK 11/03/20 11/03/20 - Allergies Allergies/Adverse Reactions: Allergies Allergy/AdvReac Type Severity Reaction Status Date / Time Sulfa (Sulfonamide Allergy Intermediate Rash Verified 06/07/20 16:47 Antibiotics) Review of Systems - Constitutional Constitutional: reports: Weight stable (Right MAC 22cm 11/29/20; Right MAC 22cm 09/16/2020; weight 164lb 08/11/2020 from 172lb May 2020;). denies: Fever - Eyes Eyes: denies: Irritation - Ears, Nose & Throat Ears, Nose & Throat: reports: Hearing loss. denies: Dentures - Cardiovascular Cardiovascular: denies: Chest pain, Edema - Respiratory Respiratory: denies: Cough - Gastrointestinal Gastrointestinal: reports: Good appetite (consumed all breakfast this AM). denies: Abdominal pain, Constipation, Vomiting - Genitourinary Genitourinary: reports: Incontinence - Musculoskeletal Musculoskeletal: reports: Muscle weakness, Assistive devices, Transfer issues. denies: Joint pain - Integumentary Integumentary: reports: Rash (right abdominal panus and under b/l breasts--see HPI for details) - Neurological Neurological: reports: General weakness, Memory problems - Psychiatric Psychiatric: reports: Depression - Endocrine Endocrine: reports: Diabetes type 2 (controlled with metformin) - Hematologic/Lymphatic Hematologic/Lymph: reports: Recurrent infections (h/o UTIs) - All Other Systems All Other Systems: reports: Reviewed and negative (ROS supplemented by facility staff as patient is a poor historian due to dementia) Physical Exam - Vital Signs Temperature: 36.5 C Pulse Rate: 65 O2 Saturation: 97 (on RA) Blood Pressure: 105/55 (right wrist) - Physical Exam General Appearance: positive: No acute distress, Alert, Other (sitting up in hospital bed in her nightgown) Eyes Bilateral: positive: Normal inspection ENT: positive: No signs of dehydration Neck: positive: Trachea midline Cardiovascular: positive: Regular rate & rhythm Respiratory: positive: No respiratory distress, Breath sounds nml Abdomen: positive: Non-tender, Soft, Nml bowel sounds, Obese Skin: positive: Other (Erythema under right abdominal panus and b/l brests consistent with candidasis without cracking with decrease in erythema under left breast and left breasts. 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 negative: Disoriented to person, Disoriented to place Palliative Care - POLST Patient has POLST: Yes POLST Status: DNR, Comfort Measures Pain: No pain - Palliative Care Discussion: Patient continues to have persistent dermatitis due to candidiasis under her right pannus and bilateral breasts due to moisture and underlying diabetes mellitus. She has failed topical interventions in the past. She is presently on a course of Diflucan 150mg once weekly on Fridays x 4 weeks and has completed 2 weeks thus far with marginal improvement under b/l breasts but persistant symptoms under right panus. After completion of oral therapy may need to reconsider topical therapy with discontinuation of interdry fabric. She continues off creams to the sites and staff have been utilizing Interdry fabric as requested. Impression and Recommendations - Palliative Care Impression: This is an 85-year-old female with underlying dementia, likely Alzheimer's in nature, FAS T7 C who is now bedbound. She continues to have dermatitis due to candidiasis under her bilateral breasts and to her right pannus that is persistent despite topical interventions. Complete Diflucan 150 mg weekly x4 weeks with the facility following accordingly. Continue Interdry fabric to the affected folds. Palliative care will continue to provide care coordination, symptom management, advance care planning with transition to hospice when medically appropriate. Recommendations/Counseling Done: 1. Dermatitis due to candidiasis under bilateral breasts and right pannus. Has tried and has failed topical therapy previously, see HPI. Remain off topical creams. Complete Diflucan 150 mg every week on Fridays x4 weeks, total course. Patient has a history of diabetes mellitus that is contributing to persistence. Continue utilization of Interdry fabric to be placed under her right abdominal fold and bilateral breasts in the morning and removed in the evening. Patient's daughter is supplying the Interdry fabric. Continue to monitor. May need to trial topical therapy again upon completion of diflucan course. 2. Dementia. Likely Alzheimer's in nature given the patient's family history. Chronic. Progressive. Supportive care. On a disease modifying agents in assisted living environment. Status post hospice informational visit in September 2020. Right MAC remains stable at 22cm. Given the patient's advanced age and chronic comorbidities a gradual decline is expected. CPT 44020 Message left for patient's daughter/ELIS Paige at [phone] updating regarding plan of care and request return call back with any additional questions or concerns. Disclaimer: The chart note was formulated using voice recognition technology and unfortunately sound alike errors may occur.
== END 2020-11-29 11:56 | disposition home or self-care (01) ==
LOC: PC 11:55
PROVIDERS: ATTEND Nurse Practitioner Family
DX: Z51.5 Encounter for palliative care (principal); B37.2 Candidiasis of skin and nail; L30.9 Dermatitis, unspecified; F03.90 Unspecified dementia, unspecified severity, without behavioral disturbance, psychotic disturbance, mood disturbance, and anxiety; Z79.899 Other long term (current) drug therapy; Z79.84 Long term (current) use of oral hypoglycemic drugs; Z79.01 Long term (current) use of anticoagulants; Z74.01 Bed confinement status

== ENCOUNTER 2021-01-17 12:15 | Outpatient (CLI) | payer MEDICARE, OTHER ==
--- NOTE | 2021-01-17 19:00 | CONSULTATION NOTE ---
Palliative Care Follow Up - Referral Referring Provider: Karoline Kline PA-C Time of Visit: Intiaited 1215 Referral setting: Assisted living Referral Reason: HTN/Dementia without behavior/FTT - Information Sources Records reviewed: Previous records reviewed History/Review of Systems obtained from: Patient, Nursing Exam limitations: Clinical condition (Advanced Dementia) - History of Present Illness Update Brief HPI Update: This is an 85-year-old female who was seen in follow-up today in her apartment in [place] assisted living due to dermatitis secondary to candidiasis under her bilateral breasts and right pannus, hypertension, and dementia. Provider wore N95 mask. The patient has been struggling with topical candidiasis under her bilateral breasts and right pannus for some time. She has been trialed on nystatin/triamcinolone ointment, ketoconazole cream, nystatin powder and is status post weekly Diflucan. She is presently requested to have her folds cleanse daily and then have Interdry fabric placed for antiwicking properties. Erythema overall appears to be improved under all skin folds however, there is some mild cracking to the right pannus without discharge. The patient is presently on furosemide 20 mg daily in addition to lisinopril/HCTZ for edema. Given she is in a bedbound state with out noted lower extremity edema and blood pressure well controlled would benefit from dose reduction today. Patient is seen sitting up in her hospital bed, bright and alert. She has a TV on and her bedside table in reach with cranberry juice accessible. She offers up no acute concerns today. Past Medical History: Patient has a past medical history of hypertension, hyperlipidemia, atrial fibrillation on Pradaxa, lung nodule, cognitive impairment, diabetes mellitus type 2, breast cancer, IBS, osteoporosis, radiation to the left breast and lumpectomy at age 68, cataracts, history of tobacco abuse, dementia. 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 She has a degree in education that began at [employer] and then completed at [employer]. She has 3 children, 1 daughter and 2 sons. Her daughter, Grecia is her DPOA with contact number [phone]. 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 The patient has been residing in [place] for the last 4 years. She is also being supported by the palliative care home therapy teacher. Medications/Allergies - Medications Home Medications: Ambulatory Orders Medication Instructions Recorded Confirmed Atenolol 100 mg PO DAILY 07/14/13 05/19/20 Lisinopril/Hydrochlorothiazide 0.5 each PO DAILY 07/14/13 05/19/20 [Lisinopril-Hctz 20-25 mg Tab] Metformin HCl [Glucophage] 500 mg PO QPM 07/14/13 05/19/20 Dabigatran Etexilate Mesylate 150 mg PO BID 07/20/18 05/19/20 [Pradaxa] Furosemide [Lasix] 10 mg PO DAILY 05/19/20 05/19/20 Psyllium Husk [Metamucil] 1 PO DAILY MDD 1 scoop daily 05/19/20 Refresh Liquigel 1% 1 drops EACHEYE QID 05/19/20 Ketoconazole 2% Cream [Nizoral 2% 1 applic TP DAILY MDD x2 weeks 01/18/21 01/18/21 Cream] - Allergies Allergies/Adverse Reactions: Allergies Allergy/AdvReac Type Severity Reaction Status Date / Time Sulfa (Sulfonamide Allergy Intermediate Rash Verified 06/07/20 16:47 Antibiotics) Review of Systems - Constitutional Constitutional: reports: Weight stable (Right MAC 21cm 01/18/21; Right MAC 22cm 11/29/20; Right MAC 22cm 09/16/2020; weight 164lb 08/11/2020 from 172lb May 2020;). denies: Fever - Ears, Nose & Throat Ears, Nose & Throat: reports: Hearing loss. denies: Dentures - Cardiovascular Cardiovascular: denies: Chest pain, Edema - Respiratory Respiratory: denies: Cough - Gastrointestinal Gastrointestinal: reports: Good appetite. denies: Constipation, Vomiting - Genitourinary Genitourinary: reports: Incontinence - Musculoskeletal Musculoskeletal: reports: Muscle weakness, Assistive devices, Transfer issues. denies: Joint pain - Integumentary Integumentary: reports: Rash (right abdominal panus and under b/l breasts--see HPI for details) - Neurological Neurological: reports: General weakness, Memory problems - Psychiatric Psychiatric: reports: Depression - Endocrine Endocrine: reports: Diabetes type 2 (controlled with metformin) - Hematologic/Lymphatic Hematologic/Lymph: reports: Recurrent infections (h/o UTIs) - All Other Systems All Other Systems: reports: Reviewed and negative (ROS supplemented by facility TEACHER OF GIFTED STUDENTS as patient is a poor historian due to dementia) Physical Exam - Vital Signs Temperature: 36.8 C Pulse Rate: 67 O2 Saturation: 95 (on RA) Blood Pressure: 129/68 (left wrist) - Physical Exam General Appearance: positive: No acute distress, Alert, Other (sitting up in hospital bed in her nightgown) ENT: positive: No signs of dehydration Neck: positive: Trachea midline Cardiovascular: positive: Regular rate & rhythm Respiratory: positive: No respiratory distress, Breath sounds nml, Diminished in bases Abdomen: positive: Non-tender, Soft, Nml bowel sounds, Obese Skin: positive: Other (Erythema under right abdominal panus with mild cracking and b/l brests consistent with candidasis without cracking. Decrease in overall erythema from previous evaluations. 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 negative: Disoriented to person, Disoriented to place Palliative Care - POLST Patient has POLST: Yes POLST Status: DNR, Comfort Measures Pain: No pain - Palliative Care Discussion: Patient continues to have persistent dermatitis due to candidiasis most specifically under her right pannus and bilateral breasts due to moisture and underlying diabetes mellitus. She is trialed multiple topical interventions in the past as well as oral courses of Diflucan. Overall, the erythema has improved to her skin but candidiasis continues to persist. Have requested routine skin care on a daily basis if that is a contributing factor. Will reinitiate topical ketoconazole cream to be applied to affected areas daily x2 weeks and hold Interdry fabric and then resume Interdry fabric once completed. Unclear if this is something that will be able to be resolved however, the patient herself is without any discomfort or acute complaints during evaluation. Patient is bedbound and therefore, her lower extremities are elevated in the bed and she has not had any evidence of lower extremity edema and therefore would benefit from trial reduction of her oral diuretic therapy to evaluate for potential discontinuation. Impression and Recommendations - Palliative Care Impression: This is a karthik 85-year-old female with underlying dementia, likely Alzheimer's in nature, FAS T7 C with MAC 21 cm to right arm who is bedbound. She continues to have dermatitis due to candidiasis under her bilateral breasts and right pannus that is persistent and will retrial topical ketoconazole and then resume Interdry fabric to the affected folds. Would benefit from trial reduction of oral diuretic given her bedbound state and adequate blood pressure control. Palliative care will continue to provide care coordination, symptom management, advance care planning with transition to hospice when medically appropriate. Recommendations/Counseling Done: 1. Dermatitis due to candidiasis under bilateral breasts and right pannus. Retrial ketoconazole cream under bilateral breasts and right pannus at applied daily after cleansing affected folds with soap and water and patting dry x2 weeks. During application of hemostatic consult hold Interdry fabric application then resume. Interdry fabric to be placed under the patient's right abdominal fold and bilateral breasts in the morning and removed in the evening and the patient's daughter is supplying Interdry fabric. Is status post Diflucan course. Continue to monitor. 2. Bilateral lower extremity edema in the setting of hypertension. No cardiac awareness. Euvolemic. Trial reduction of furosemide to 20 mg daily and continue lisinopril/HCTZ as prescribed. If tolerates dose reduction of furosemide may consider discontinuation of furosemide in the future. Patient has had resolution of her lower extremity edema given her bedbound state. Continue to monitor. 3. Protein calorie malnutrition. Gradual weight loss. Right MAC 21 cm today previous 22 cm. Not unexpected given the patient's advanced dementia. Continues to have a fair appetite. Continue to monitor weight loss trends. 4. Dementia. Likely Alzheimer's in nature given the patient's family history. Chronic. Progressive. Supportive care. On no disease modifying agents. Status post hospice informational visit in September 2020. Given the patient's advanced age and chronic comorbidities a gradual decline is expected. 5. Advanced care planning. Patient has POLST in place as DN AR with comfort measures. Patient is supported by a loving family and they have expressed the desire to focus on quality of life and symptom management within the patient's apartment in [facility]. Goal is to transition to hospice services when appropriate. CPT 10472 Contacted patient's daughter/DPOA Grecia Figueroa at [phone] and updated regarding plan of care with message left. Advised to return call if any additional questions or concerns. Disclaimer: The chart note was formulated using voice recognition technology and unfortunately sound alike errors may occur.
== END 2021-01-17 12:16 | disposition home or self-care (01) ==
LOC: PC 12:15
PROVIDERS: ATTEND Nurse Practitioner Family
DX: Z51.5 Encounter for palliative care (principal); B37.2 Candidiasis of skin and nail; R60.0 Localized edema; E46 Unspecified protein-calorie malnutrition; F03.90 Unspecified dementia, unspecified severity, without behavioral disturbance, psychotic disturbance, mood disturbance, and anxiety; Z87.891 Personal history of nicotine dependence; Z66 Do not resuscitate

== ENCOUNTER 2021-02-01 10:20 | Outpatient (CLI) | payer MEDICARE, OTHER ==
--- NOTE | 2021-02-02 10:45 | CONSULTATION NOTE ---
Palliative Care Follow Up - Referral Referring Provider: Karoline Ham PA-C Time of Visit: Intiated 1020 Referral setting: Assisted living Referral Reason: BLE edema/f.u change in condition/Dementia/candidiasis - Information Sources Records reviewed: Previous records reviewed History/Review of Systems obtained from: Caregiver, Nursing Exam limitations: Clinical condition (Advanced Dementia) - History of Present Illness Update Brief HPI Update: This is a karthik 85-year-old female who was seen in follow-up today in her apartment in [facility] living due to dermatitis secondary to candidiasis in her bilateral breasts and right pannus, bilateral lower extremity edema, dementia, and recent reports of change in condition. Provider wore N95 mask. Daughter/DPOA 01/18 reported change in patient with her cognition and relayed goal remains to be on comfort. Requested that patient's vital signs be obtained on a routine basis after this observation. The patient remained afebrile for 3 days with blood pressure within normal range. The patient has returned back to her baseline function. The patient continues to have persisting topical candidiasis under her bilateral breasts and right pannus. She has been trialed on nystatin/triamcinolone ointment, ketoconazole cream, nystatin powder as well as oral Diflucan. She is also had utilization of Interdry fabric for antiwicking properties. She is presently on a ketoconazole cream again to her folds with some reduction in erythema noted and a decrease in cracking. Would therefore be beneficial to continue ketoconazole cream for another 2 weeks. On last evaluation the patient's furosemide was reduced to 10 mg daily and continues on lisinopril/HCTZ. She has not had any increase of noted lower extremity edema and her blood pressure remains well controlled. Patient is seen sitting up in her hospital bed, bright and alert. She has a TV on and her bedside table in reach with apple juice accessible. Offers up no acute concerns today. Past Medical History: Patient has a past medical history of hypertension, hyperlipidemia, atrial fibrillation on Pradaxa, lung nodule, cognitive impairment, diabetes mellitus type 2, breast cancer, IBS, osteoporosis, radiation to the left breast and lumpectomy at age 68, cataracts, history of tobacco abuse, dementia. 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 She has a degree in education that began at [employer] and then completed at [employer]. She has 3 children, 1 daughter and 2 sons. Her daughter, Grecia is her DPOA with contact number [phone]. 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 The patient has been residing in [place] for the last 4 years. She is also being supported by the palliative care metrology specialist. Medications/Allergies - Medications Home Medications: Ambulatory Orders Medication Instructions Recorded Confirmed Atenolol 100 mg PO DAILY 07/14/13 05/19/20 Lisinopril/Hydrochlorothiazide 0.5 each PO DAILY 07/14/13 05/19/20 [Lisinopril-Hctz 20-25 mg Tab] Metformin HCl [Glucophage] 500 mg PO QPM 07/14/13 05/19/20 Dabigatran Etexilate Mesylate 150 mg PO BID 07/20/18 05/19/20 [Pradaxa] Furosemide [Lasix] 10 mg PO DAILY 05/19/20 05/19/20 Psyllium Husk [Metamucil] 1 PO DAILY MDD 1 scoop daily 05/19/20 Refresh Liquigel 1% 1 drops EACHEYE QID 05/19/20 Ketoconazole 2% Cream [Nizoral 2% 1 applic TP DAILY MDD x2 weeks 01/18/21 01/18/21 Cream] - Allergies Allergies/Adverse Reactions: Allergies Allergy/AdvReac Type Severity Reaction Status Date / Time Sulfa (Sulfonamide Allergy Intermediate Rash Verified 06/07/20 16:47 Antibiotics) Review of Systems - Constitutional Constitutional: reports: Weight stable (Right MAC 21cm 01/18/21; Right MAC 22cm 11/29/20; Right MAC 22cm 09/16/2020; weight 164lb 08/11/2020 from 172lb May 2020;). denies: Fever - Eyes Eyes: denies: Irritation - Ears, Nose & Throat Ears, Nose & Throat: reports: Hearing loss - Cardiovascular Cardiovascular: denies: Chest pain, Edema - Respiratory Respiratory: denies: Cough - Gastrointestinal Gastrointestinal: reports: Good appetite. denies: Abdominal pain, Constipation - Genitourinary Genitourinary: reports: Incontinence - Musculoskeletal Musculoskeletal: reports: Muscle weakness, Assistive devices, Transfer issues. denies: Joint pain - Integumentary Integumentary: reports: Rash (right abdominal panus and under b/l breasts--see HPI for details) - Neurological Neurological: reports: General weakness, Memory problems - Psychiatric Psychiatric: reports: Depression - Endocrine Endocrine: reports: Diabetes type 2 (controlled with metformin) - Hematologic/Lymphatic Hematologic/Lymph: reports: Recurrent infections (h/o UTIs) - All Other Systems All Other Systems: reports: Reviewed and negative (ROS supplemented by facility CUSTOMER ACCOUNT TECHNICIAN as patient is a poor historian due to dementia) Physical Exam - Vital Signs Temperature: 36.2 C Respiratory Rate: 73 Blood Pressure: 136/68 - Physical Exam General Appearance: positive: No acute distress, Alert, Other (sitting up in hospital bed in her nightgown) ENT: positive: No signs of dehydration Neck: positive: Trachea midline Cardiovascular: positive: Regular rate & rhythm Respiratory: positive: No respiratory distress, Breath sounds nml, Diminished in bases Abdomen: positive: Non-tender, Soft, Nml bowel sounds, Obese Skin: positive: Other (Erythema under right abdominal panus and b/l brests consistent with candidasis without cracking and reduction in erythema since last assessment.) Extremities: positive: No pedal edema, Other (+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 negative: Disoriented to person, Disoriented to place Palliative Care - POLST Patient has POLST: Yes POLST Status: DNR, Comfort Measures Pain: No pain - Palliative Care Discussion: Given recent reports of changes in the patient's overall clinical condition reported by the daughter and normal vital signs appropriate to reevaluate the patient today and presently at baseline without acute complaints. She continues to have persistent dermatitis due to candidiasis most pacifically under her right pannus and bilateral breasts due to moisture and underlying diabetes mellitus. She has had multiple topical interventions in the past as well as oral courses of Diflucan. Overall, her erythema is improved since reintroduction of ketoconazole cream and will extend for another 2 weeks before resuming Interdry fabric. Request that the patient continue to have topical skin care performed. Impression and Recommendations - Palliative Care Impression: This is a karthik 85-year-old female with underlying dementia, likely Alzheimer's in nature who is bedbound. She has tolerated dose reduction of furosemide. She continues to have dermatitis due to candidiasis under her bilateral breasts and right pannus that is persistent and will extend topical ketoconazole cream and then resume Interdry fabric to the affected folds. Palliative care will continue to provide care coordination, symptom management and advance care planning with transition to hospice when medically appropriate. Recommendations/Counseling Done: 1. Bilateral lower extremity edema in the setting of hypertension. No cardiac awareness. Euvolemic. Tolerated reduction of furosemide to 10 mg daily and continue and may look at discontinuation at next follow-up if blood pressure remains well controlled and no evidence of lower extremity edema. Continue lisinopril/HCTZ as prescribed. Continue to monitor. 2. Dermatitis due to candidiasis under bilateral breasts and right pannus. Continue ketoconazole cream under bilateral breasts and right pannus daily after cleansing the affected folds with soap and water and patting dry times additional 2 weeks. After completion of ketoconazole cream resume Interdry fabric application to the right abdominal fold and bilateral breast in the morning and removed in the evening with the patient's daughter supplying Interdry fabric. Status post Diflucan courses. Continue to monitor. 3. Dementia. Likely Alzheimer's in nature given the patient's family history. Chronic. Progressive. Supportive care. Underuse modifying agents. Status post hospice informational visit in September 2020. Given the patient's advanced age and chronic comorbidities a gradual Grant is expected. CPT 19708 Message left for daughter/DPOA Grecia Figueroa at [phone] and updated regarding plan of care. Advised to return call with any additional questions or concerns. Disclaimer: The chart note was formulated using voice recognition technology and unfortunately sound alike errors may occur.
== END 2021-02-01 10:21 | disposition home or self-care (01) ==
LOC: PC 10:20
PROVIDERS: ATTEND Nurse Practitioner Family
DX: Z51.5 Encounter for palliative care (principal); B37.2 Candidiasis of skin and nail; E11.620 Type 2 diabetes mellitus with diabetic dermatitis; F03.90 Unspecified dementia, unspecified severity, without behavioral disturbance, psychotic disturbance, mood disturbance, and anxiety; R60.0 Localized edema; I10 Essential (primary) hypertension; Z79.84 Long term (current) use of oral hypoglycemic drugs; Z74.01 Bed confinement status; Z66 Do not resuscitate

== ENCOUNTER 2021-03-31 10:50 | Outpatient (CLI) | payer MEDICARE, OTHER ==
--- NOTE | 2021-03-31 12:25 | CONSULTATION NOTE ---
Palliative Care Follow Up - Referral Referring Provider: Karoline Raymond PA-C Time of Visit: Intiated 1050 Referral setting: Assisted living Referral Reason: Dermatitis/HTN/Dementia - Information Sources Records reviewed: Previous records reviewed History/Review of Systems obtained from: Patient, Caregiver, Nursing (YOGI Cavazos) Exam limitations: Clinical condition (Advanced Dementia) - History of Present Illness Update Brief HPI Update: This is a karthik 86-year-old female who was seen in follow-up today in her apartment at [facility] assisted living due to dermatitis secondary to candidiasis under her bilateral breasts and right pannus, hypertension, bilateral lower extremity edema and dementia. Provider wore N95 mask. Patient has essentially been bedbound since late spring 2020. Since that time she has had significant reduction in her in her lower extremity edema. Today, she presents without any lower extremity edema. In January 2021 her furosemide dosage was decreased to 10 mg daily. She has tolerated this dose reduction well. Would benefit from discontinuation of furosemide moving forward. The patient continues to have persisting topical candidiasis under her bilateral breasts and right pannus and has been trialed on nystatin/triamcinolone ointment, ketoconazole cream, nystatin powder as well as oral Diflucan. She has Interdry fabric for antiwicking properties. She is presently on ketoconazole cream to her folds and at present has had significant reduction in the overall e rythema to all sites which has not been present for some time. Caregivers report that the patient is allowing for more frequent hygiene and this is also a contributing factor. YOGI Cavazos reports that the patient sustained a fall rolling out of bed x2 since last evaluation without injury. Patient is seen sitting up in her hospital bed with the TV on, bright and alert. She is quick with her responses today showing a witty humor. Denies any acute concerns. 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 She has a degree in education that began at [employer] and then completed at [employer]. She has 3 children, 1 daughter and 2 sons. Her daughter, Grecia is her DPOA with contact number [phone]. 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 The patient has been residing in [place] for the last 4 years. She is also being supported by the palliative care primer inserting machine operator. Room has birthday cards displayed for recent 86th birthday and her wall is decorated highlighting this. Social History - Living Situation Living arrangement: Assisted living Medications/Allergies - Medications Home Medications: Ambulatory Orders Medication Instructions Recorded Confirmed Atenolol 100 mg PO DAILY 07/14/13 05/19/20 Lisinopril/Hydrochlorothiazide 0.5 each PO DAILY 07/14/13 05/19/20 [Lisinopril-Hctz 20-25 mg Tab] Metformin HCl [Glucophage] 500 mg PO QPM 07/14/13 05/19/20 Dabigatran Etexilate Mesylate 150 mg PO BID 07/20/18 05/19/20 [Pradaxa] Psyllium Husk [Metamucil] 1 PO DAILY MDD 1 scoop daily 05/19/20 Refresh Liquigel 1% 1 drops EACHEYE QID 05/19/20 Ketoconazole 2% Cream [Nizoral 2% 1 applic TP DAILY 01/18/21 01/18/21 Cream] - Allergies Allergies/Adverse Reactions: Allergies Allergy/AdvReac Type Severity Reaction Status Date / Time Sulfa (Sulfonamide Allergy Intermediate Rash Verified 06/07/20 16:47 Antibiotics) Review of Systems - Constitutional Constitutional: reports: Weight stable (Right MAC 21cm 03/31/2021; Right MAC 21cm 01/18/21; Right MAC 22cm 11/29/20; Right MAC 22cm 09/16/2020; weight 164lb 08/11/2020 from 172lb May 2020;). denies: Fever - Eyes Eyes: denies: Irritation - Ears, Nose & Throat Ears, Nose & Throat: reports: Hearing loss - Cardiovascular Cardiovascular: denies: Edema - Respiratory Respiratory: denies: Cough, SOB at rest - Gastrointestinal Gastrointestinal: reports: Good appetite. denies: Abdominal pain, Constipation, Vomiting - Genitourinary Genitourinary: reports: Incontinence - Musculoskeletal Musculoskeletal: reports: Muscle weakness, Assistive devices, Transfer issues. denies: Joint pain - Integumentary Integumentary: reports: Rash (right abdominal panus and under b/l breasts--see HPI for details) - Neurological Neurological: reports: General weakness, Memory problems - Psychiatric Psychiatric: reports: Depression - Endocrine Endocrine: reports: Diabetes type 2 (controlled with metformin) - Hematologic/Lymphatic Hematologic/Lymph: reports: Recurrent infections (h/o UTIs) - All Other Systems All Other Systems: reports: Reviewed and negative (ROS supplemented by facility SURGICAL INSTRUMENT TECHNICIAN and caregivers at facility as patient is a poor historian due to dementia) Physical Exam - Vital Signs Temperature: 36.6 C Pulse Rate: 58 O2 Saturation: 97 (on RA) Blood Pressure: 112/44 - Physical Exam General Appearance: positive: No acute distress, Alert, Other (sitting up in hospital bed) Eyes Bilateral: positive: Normal inspection ENT: positive: No signs of dehydration Neck: positive: Trachea midline Cardiovascular: positive: Regular rate & rhythm Respiratory: positive: No respiratory distress, Breath sounds nml, Diminished in bases Abdomen: positive: Non-tender, Soft, Nml bowel sounds, Obese Skin: positive: Other (Significantly reduced Erythema under right abdominal panus and b/l brests consistent with candidasis without cracking. SOme evidence of lichenification to these sites.). 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 negative: Disoriented to person, Disoriented to place Palliative Care - POLST Patient has POLST: Yes POLST Status: DNR, Comfort Measures Pain: No pain Performance Status: FAST 7C Remains bedbound and nonambulatory, incontinent of bowel and bladder, requires assistance with personal hygiene. - Palliative Care Discussion: Patient's MAC remained stable and she continues to have a good appetite. Given she is bedbound and euvolemic we will discontinue furosemide 10 mg daily and monitor response off of this medication to reduce polypharmacy and pill burden. She has had significant improvement to dermatitis due to candidiasis under her bilateral breasts and right pannus due to moisture, underlying diabetes mellitus and concerns for her not allowing adequate hygiene care which has resolved per staff report. Continue Interdry fabric as well as ketoconazole cream. Impression and Recommendations - Palliative Care Impression: This is a karthik 86-year-old female with underlying dementia, likely Alzheimer's in nature who is bedbound. Given she is euvolemic and blood pressure well controlled we will discontinue furosemide. She continues to have dermatitis due to candidiasis under her bilateral breasts and right pannus that is persistent but significantly improved from previous evaluations and would continue ketoconazole cream and Interdry fabric to affected folds as prescribed. Palliative care will continue to provide care coordination, symptom management and advance care planning with transition to hospice when medically appropriate. Recommendations/Counseling Done: 1. Bilateral lower extremity edema in the setting of hypertension. No cardiac awareness. Euvolemic. Discontinue furosemide 10 mg daily and continue lisinopril/HCTZ as prescribed. Request that facility obtain blood pressure and heart rate daily x7 days and fax to this [facility] SPECIALIST for review. Continue to monitor. 2. Atrial fibrillation. On atenolol for rate control and Pradaxa for anticoagulation. No cardiac awareness. Continue to monitor. 3. Dermatitis due to candidiasis under bilateral breasts and right pannus. Significantly improved from prior evaluations. Continue ketoconazole cream and Interdry fabric as prescribed. Continue to encourage daily cleansing of affected folds with soap and water. Noted when she is Acacian to some of the sites and may consider topical erythromycin ointment in the future if symptoms persist. Status post Diflucan course. Continue to monitor. 4. Protein calorie malnutrition. History of weight loss presently stable. Right MAC 21 cm today. Continues to have an adequate appetite per staff report. Continue to offer foods the patient finds pleasurable. Continue to monitor MAC for weight loss trends. 5. Dementia. Likely Alzheimer's in nature given the patient's family history. Chronic. Progressive. Supportive care. On no disease modifying agents. Status post hospice informational visit in September 2020. Given the patient's advanced age and chronic comorbidities a gradual decline is expected. CPT 80378 Message left for daughter/DPOA Grecia Figueroa at [phone] and updated regarding plan of care and awaiting return call with any additional questions or concerns. Discussed plan of care with YOGI Cavazos at facility with questions answered and addressed. Disclaimer: The chart note was formulated using voice recognition technology and unfortunately sound alike errors may occur.
== END 2021-03-31 10:51 | disposition home or self-care (01) ==
LOC: PC 10:50
PROVIDERS: ATTEND Nurse Practitioner Family
DX: Z51.5 Encounter for palliative care (principal); Z74.01 Bed confinement status; B37.2 Candidiasis of skin and nail; R60.0 Localized edema; I10 Essential (primary) hypertension; I48.91 Unspecified atrial fibrillation; F03.90 Unspecified dementia, unspecified severity, without behavioral disturbance, psychotic disturbance, mood disturbance, and anxiety; E11.9 Type 2 diabetes mellitus without complications; Z79.01 Long term (current) use of anticoagulants; Z79.899 Other long term (current) drug therapy; Z79.84 Long term (current) use of oral hypoglycemic drugs; Z87.440 Personal history of urinary (tract) infections; Z91.81 History of falling

== ENCOUNTER 2021-04-29 10:50 | Outpatient (CLI) | payer MEDICARE, OTHER ==
--- NOTE | 2021-04-29 16:01 | CONSULTATION NOTE ---
Palliative Care Follow Up - Referral Referring Provider: Karoline Raymond PA-C Time of Visit: Initiated 1050 Referral setting: Assisted living Referral Reason: BLE edema/Dermatitis/Dementia - Information Sources Records reviewed: Previous records reviewed History/Review of Systems obtained from: Patient, Caregiver, Nursing Exam limitations: Clinical condition (Advanced Dementia) - History of Present Illness Update Brief HPI Update: This is a karthik 86-year-old female who is seen in follow-up today in her apartm ent at [facility] assisted [facility] due to dermatitis secondary to candidiasis under her bilateral breasts and right pannus, bilateral lower extremity edema and dementia with caregiver present. Provider wore N95 mask. The patient continues to have persisting topical candidiasis under her bilateral breasts and right pannus and has been trialed on nystatin/triamcinolone ointment, ketoconazole, nystatin powder as well as pulse therapy with oral Diflucan. She is Interdry fabric for antiwhipping properties under her right pannus. Overall, her erythema has significantly reduced however, her skin under her left breast appears to have flared. On last evaluation the patient's furosemide was discontinued. Her blood pressure was monitored for 7 days and demonstrated adequate control with systoli c 102-132 and diastolic 62-73. She does not have any lower extremity edema. Past Medical History: Patient has a past medical history of hypertension, hyperlipidemia, atrial fibrillation on Pradaxa, lung nodule, cognitive impairment, diabetes mellitus type 2, breast cancer, IBS, osteoporosis, radiation to the left breast and lumpectomy at age 68, cataracts, history of tobacco abuse, dementia. 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 She has a degree in education that began at [employer] and then completed at [employer] [facility]. She has 3 children, 1 daughter and 2 sons. Her daughter, Grecia is her DPOA with contact number [phone]. 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 The patient has been residing in [facility] for the last 4 years. She is also being supported by the palliative care vice president compliance. Has [employer] day cards in her room and read the cards to her during visit. Medications/Allergies - Medications Home Medications: Ambulatory Orders Medication Instructions Recorded Confirmed Atenolol 100 mg PO DAILY 07/14/13 05/19/20 Lisinopril/Hydrochlorothiazide 0.5 each PO DAILY 07/14/13 05/19/20 [Lisinopril-Hctz 20-25 mg Tab] Metformin HCl [Glucophage] 500 mg PO QPM 07/14/13 05/19/20 Dabigatran Etexilate Mesylate 150 mg PO BID 07/20/18 05/19/20 [Pradaxa] Psyllium Husk [Metamucil] 1 PO DAILY MDD 1 scoop daily 05/19/20 Refresh Liquigel 1% 1 drops EACHEYE QID 05/19/20 Ketoconazole 2% Cream [Nizoral 2% 1 applic TP DAILY 01/18/21 01/18/21 Cream] - Allergies Allergies/Adverse Reactions: Allergies Allergy/AdvReac Type Severity Reaction Status Date / Time Sulfa (Sulfonamide Allergy Intermediate Rash Verified 06/07/20 16:47 Antibiotics) Review of Systems - Constitutional Constitutional: reports: Weight stable (Right MAC 21cm 03/31/2021; Right MAC 21cm 01/18/21; Right MAC 22cm 11/29/20; Right MAC 22cm 09/16/2020; weight 164lb 08/11/2020 from 172lb May 2020;). denies: Fever - Ears, Nose & Throat Ears, Nose & Throat: reports: Hearing loss - Cardiovascular Cardiovascular: denies: Edema - Respiratory Respiratory: denies: Wheezing - Gastrointestinal Gastrointestinal: reports: Good appetite. denies: Abdominal pain, Vomiting - Genitourinary Genitourinary: reports: Incontinence - Musculoskeletal Musculoskeletal: reports: Muscle weakness, Assistive devices, Transfer issues. denies: Joint pain - Integumentary Integumentary: reports: Rash (right abdominal panus and under b/l breasts--see HPI for details) - Neurological Neurological: reports: General weakness, Memory problems - Psychiatric Psychiatric: reports: Depression - Endocrine Endocrine: reports: Diabetes type 2 (controlled with metformin) - Hematologic/Lymphatic Hematologic/Lymph: reports: Recurrent infections (h/o UTIs) - All Other Systems All Other Systems: reports: Reviewed and negative (ROS supplemented by facility PUMP ATTENDANT and caregivers at facility as patient is a poor historian due to dementia) Physical Exam - Vital Signs Temperature: 36.4 C Pulse Rate: 66 O2 Saturation: 96 (on RA) Blood Pressure: 113/73 - Physical Exam General Appearance: positive: No acute distress, Alert, Other (sitting up in hospital bed) Eyes Bilateral: positive: Normal inspection ENT: positive: No signs of dehydration Neck: positive: Trachea midline Cardiovascular: positive: Regular rate & rhythm Respiratory: positive: No respiratory distress, Breath sounds nml, Diminished in bases Abdomen: positive: Non-tender, Soft, Nml bowel sounds, Obese Skin: positive: Other (Significantly reduced Erythema under right abdominal panus with Interdry fabric in place. Mild erythema under right breast and increased erythema under right breast both without cracking.). 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 negative: Disoriented to person, Disoriented to place Palliative Care - POLST Patient has POLST: Yes POLST Status: DNR, Comfort Measures Pain: No pain - Palliative Care Discussion: Patient does not have any lower extremity edema after discontinuation of furosemide. Her blood pressure remains well controlled and she is euvolemic not requiring reinitiation of furosemide. She has some increased erythema due to candidiasis under her left breast and would benefit from focal ketoconazole cream at that site. Otherwise, under her right breast and right pannus appears to be stable. No evidence of pressure ulcers to her buttocks or sacrum. She is on a pressure reducing mattress. Impression and Recommendations - Palliative Care Impression: This is a karthik 86-year-old female with underlying dementia, likely Alzheimer's in nature who is bedbound. She remains euvolemic after discontinuation of furosemide and blood pressure remains stable. She has had increased candidiasis under her left breast and would benefit from focal administration of ketoconazole cream to that site. To continue Interdry fabric to affected folds. Palliative care will continue provide care coordination, symptom management and advance care planning with transition to hospice when medically appropriate. Recommendations/Counseling Done: 1. Dermatitis due to candidiasis under bilateral breasts and right pannus. Significantly improved however, increased erythema under left breast. Apply ketoconazole cream daily x2 weeks to left breast. Continue ketoconazole in Interdry fabric as prescribed. Continue to encourage daily cleansing of affected folds with soap and water. Status post Diflucan pulse therapy courses. Consider topical erythromycin ointment in the future if symptoms persist. Continue to monitor. 2. Bilateral lower extremity edema in the setting of hypertension. No cardiac awareness. Euvolemic. Tolerated discontinuation of furosemide and no need to resume. Continue lisinopril/HCTZ as prescribed. Continue to monitor. 3. Dementia. Likely Alzheimer's in nature given the patient's family history. Chronic. Progressive. Supportive care. On no disease modifying agents. Status post hospice informational visit in September 2020. Given the patient's advanced age and chronic comorbidities a gradual decline is expected. CPT 82674 Updated facility PUMP ATTENDANT regarding plan of care. Questions answered and addressed. Will call and update daughter/DPOA Grecia Figueroa. Disclaimer: The chart note was formulated using voice recognition technology and unfortunately sound alike errors may occur.
== END 2021-04-29 10:51 | disposition home or self-care (01) ==
LOC: PC 10:50
PROVIDERS: ATTEND Nurse Practitioner Family
DX: Z51.5 Encounter for palliative care (principal); B37.2 Candidiasis of skin and nail; R60.0 Localized edema; F03.90 Unspecified dementia, unspecified severity, without behavioral disturbance, psychotic disturbance, mood disturbance, and anxiety; Z66 Do not resuscitate